=== PATIENT | female | born 1950 | race Caucasian/White ===

== ENCOUNTER 2021-04-11 10:58 | Emergency (ER) | payer MEDICARE, OTHER, SELFPAY ==
[2021-04-11 10:59] VITALS: BP 181/90; PULSE 111; RESP 18; TEMP 36.4; O2SAT 98; BMI 21.4
[2021-04-11 11:05] VITALS: BP 181/90
--- NOTE | 2021-04-11 12:08 | EX.ED.VIS.EY ---
HPI History of Present Illness Chief Complaint: Eye Problem Informant: patient Onset/Context/Timing Location: Left Eye Onset: Days (4) Context: Gradual Onset Timing: Continuous Worsened by: Nothing Relieved by: Nothing Associated Symptoms Associated Symptoms - Eyes: Crusting, Drainage, Eyelid swelling, Matting and Redness; Negative for Burning, Foreign body sensation, Itching, Pain and Photophobia Narrative Narrative: Patient presents with left eye redness and swelling that has been getting worse over the past 4 days. Patient noticed a rash over her left forehead and nose yesterday. Patient states nothing makes it worse and nothing makes it better. Patient admits to some matting and crusting. Patient also admits to some drainage from the left eye. Patient denies any visual changes. Patient denies any trauma or injury. Patient states she does wear a contact lens in her right eye but not in her left. PFSH PFSH no medical history Home Medications valacyclovir 1,000 mg PO Q8H #21 tab 04/11/21 [Rx Last Taken Unknown] Allergy/AdvReac Type Severity Reaction Status Date / Time No Known Allergies Allergy Verified 04/11/21 10:58 Surgical History History of hysterectomy Social History (Updated 04/11/21 @ 12:[address] Richard Ballard, ) Smoking Status: Current every day smoker tobacco type: cigarettes Smoking packs per day: 1 Smoking cigarettes per day: 20.0 ROS ROS ED Constitutional Constitutional ED: Denies chills or fever(s) Eyes Eyes: Denies blurry vision or change in vision ENT ENT ED: Denies rhinorrhea or sore throat Cardiovascular Cardiovascular: Denies chest pain or palpitations Respiratory/Chest Respiratory/Chest: Denies cough or dyspnea Gastrointestinal Gastrointestinal: Denies nausea or vomiting Genitourinary Genitourinary ED: Denies dysuria or hematuria Musculoskeletal Musculoskeletal: Denies back pain or neck pain Integumentary Reports rash; Denies abscess Neurologic Neurologic: Denies headache(s) or weakness Allergic/Immunologic Allergic/Immunologic ED: Denies mouth swelling or urticaria EXAM Physical Exam Const Vital Signs: 04/11/21 10:59 04/11/21 11:05 Temperature 97.5 F L Temperature Source Temporal Pulse Rate 111 H Respiratory Rate 18 Blood Pressure 181/90 H 181/90 H Blood Pressure Mean 120 120 Pulse Ox 98 Oxygen Delivery Method Room Air Positive well nourished and well developed General Appearance ED: well developed Eyes Alignment: alignment normal Eyelid: eyelids abnormal left upper eyelid swelling and left lower eyelid swelling Conjunctiva: conjunctiva abnormal left Details: injection Positive for diffuse Cornea: cornea normal and fluorescein used Pupil: PERRL EOM: Negative for EOM abnormal Slit Lamp: slit lamp exam performed with fluorescein Resp normal respiratory effort and clear to auscultation bilaterally Cardio regular rate and regular rhythm Neuro oriented x3, CN's II-XII intact bilaterally, moves all extremities and no sensory deficits noted Sensorium / Orientation: alert Motor Exam: strength 5/5 throughout Skin Rashes: rashes noted Left forehead and face patch, vesicle and excoriation asymmetrical erythematous dry mild herpes zoster MDM MDM MDM Narrative Medical decision making narrative: Tetracaine and fluorescein dye was applied. I do not see any dendritic lesions or corneal abrasions on the cornea. Case was discussed with Dr. Foreman from ophthalmology. She recommended placing the patient on erythromycin ointment in addition to a prescription for Valtrex. She will follow up with the patient tomorrow. Patient understood and was agreeable with the plan. All questions were answered. Discharge Plan Triage Chief Complaint: Eye Problem ED Provider: Richard Ballard Dx/Rx/DC Orders Clinical Impression: Herpes zoster ophthalmicus of left eye Instructions: ED Shingles (Herpes Zoster) Prescriptions: New valacyclovir 1 gram tablet 1,000 mg PO Q8H Qty: 21 RF: 0 Primary Care Provider: Vera Rivera Referrals: Vera Rivera DO [Primary Care Provider] - Areli Foremna MD [STAFF PHYSICIAN] - 1 Day Disposition Disposition: Home, Self Care
[2021-04-11] MEDS: Tetracaine 0.5% Ophthalmic Bottle 1 DRP OPHTHALMIC (12:33)
[2021-04-11] MEDS: Fluorescein 1 MG STRIP 1 STRIP OPHTHALMIC (12:33)
[2021-04-11] MEDS: Erythromycin Ophthalmic (NSY) 1 GM OPTH.TUBE 1 APPLIC LEFT EYE (14:07)
== END 2021-04-11 14:08 | disposition home or self-care (01) ==
PROVIDERS: Emergency Provider Emergency Medicine; PCP Family Medicine
DX: B02.30 Zoster ocular disease, unspecified (principal); F17.210 Nicotine dependence, cigarettes, uncomplicated
CPT/HCPCS: 99282

== ENCOUNTER 2025-07-14 06:18 | Inpatient (IN) | payer MEDICARE, OTHER, SELFPAY ==
[2025-07-14] VITALS (18 sets, daily range): BP systolic 93–152; BP diastolic 64–96; PULSE 68–137; RESP 14–20; TEMP 36.4–37; O2SAT 87–100; BMI 22.8; BMI 22.4
--- NOTE | 2025-07-14 06:45 | EKG12_ITS ---
Test Reason : P Blood Pressure : */* mmHG Vent. Rate : 135 BPM Atrial Rate : 135 BPM P-R Int : 152 ms QRS Dur : 116 ms QT Int : 270 ms P-R-T Axes : -10 -88 17 degrees QTcB Int : 405 ms Sinus tachycardia Left axis deviation Low voltage QRS Anteroseptal infarct , age undetermined Abnormal ECG Confirmed by Nabil Chaparro ([id number]), scientific editor KINDRA RAMACHANDRAN ([id number]) on 07/15/2025 10:30:37 AM Referred By: Confirmed By: Nabil Chaparro
--- NOTE | 2025-07-14 06:45 | CT_ITS ---
PROCEDURE: BRAIN/HEAD WITHOUT CONTRAST 07/14/2025 REASON FOR EXAM: CONFUSION History of falls. TECHNIQUE: Procedure Code: CTBR Modality: CT Procedure: BRAIN/HEAD WITHOUT CONTRAST Coronal and Sagittal reconstruction series were provided. One or more dose reduction techniques were used (e.g., Automated exposure control, adjustment of the mA and/or kV according to patient size, use of iterative reconstruction technique. RADIATION DOSE SUMMARY: CTDlvol: 44.99 mGy DLP: 779.24 mGycm COMPARISON: None FINDINGS: Brain: Low density in the periventricular white matter suggests mild chronic small vessel ischemic changes. Atherosclerotic calcification of the cavernous portions of the internal carotid arteries bilaterally. CSF Spaces: Moderate generalized cerebral atrophy Sinuses/Mastoids: Clear at visualized levels Bones: Unremarkable CT/Brain/Head without Contrast IMPRESSION: CHRONIC CHANGES. NO ACUTE FINDINGS. Reading Location: [id number]
--- NOTE | 2025-07-14 06:45 | CT_ITS ---
PROCEDURE: ABDOMEN/PELVIS W IV CONT ONLY 07/14/2025 REASON FOR EXAM: ? CIRRHOSIS WITH ASCITES Confusion. TECHNIQUE: Procedure Code: [id number] Modality: CT Procedure: ABDOMEN/PELVIS W IV CONT ONLY Coronal and Sagittal reconstruction series were provided. CONTRAST: Isovue-300 VOLUME: 95 mL One or more dose reduction techniques were used (e.g., Automated exposure control, adjustment of the mA and/or kV according to patient size, use of iterative reconstruction technique. RADIATION DOSE SUMMARY: CTDlvol: 10.5 mGy DLP: 440.85 mGycm COMPARISON: None FINDINGS: Lung bases: Small bilateral pleural effusion with the compressive bibasilar atelectasis. Coronary artery calcification. Diffuse ascites. Liver: Diffuse fatty infiltration. Findings suggestive of cirrhosis of the liver. Gallbladder: Thickening of the gallbladder wall most likely secondary to the presence of ascites. Spleen: Normal size. Pancreas: Diffuse fatty atrophy. Adrenals: Unremarkable Kidneys: Normal renal sizes. No hydronephrosis. Bladder: Unremarkable Bowel: Nonspecific bowel gas pattern. Appendix: The appendix is not identified. There is no inflammatory process identified in the right lower quadrant to suggest appendicitis. Lymph nodes: Unremarkable. Vasculature: Mild diffuse atherosclerotic calcifications are noted. Peritoneum / Retroperitoneum: Ascites. Bones: Degenerative changes of the spine. CT/Abdomen/Pelvis W IV Cont ONLY IMPRESSION: Diffuse ascites. Findings suggestive of cirrhosis of the liver. Reading Location: [id number]
[2025-07-14] MEDS: 0.9% Normal Saline (1000mL) 1,000 ML 999 ML IV (06:59)
--- NOTE | 2025-07-14 07:00 | EX.ED.DYSGE1 ---
HPI History of Present Illness Chief Complaint: Confusion Informant: patient, spouse/S.O. and EMS Narrative Narrative: Patient is a 74-year-old female who states she does not go to a family physician and because of this she does not know if she has any chronic medical conditions. She states that she has smoked for multiple years and was typically a pack-a-day smoker but has decreased as she is aged. She states she does not have supplemental oxygen at home. She states she also would drink 5-6 beers per day and did that for multiple years but as she is age that is also decreased. According to the she sleeps on the couch and he sleeps in the recliner and this is a normal event for them. Reported they both went to bed as they normally would last night and then he awoke around 1 in the morning and found the patient sitting on the floor with her pants off. He states the patient seemed confused during this time and she would not stand up. He states that he tried to help her up and she was a limp noodle. Her symptoms did not seem to be improving and with this she called EMS and she was brought in for evaluation EMS states when they arrived she appeared awake and alert but on their initial vitals her pulse ox was in the mid 80s on room air and therefore she was placed on nasal cannula oxygen PFSH PFS Medical History no medical history no medical history Allergy/AdvReac Type Severity Reaction Status Date / Time No Known Allergies Allergy Verified 07/14/25 06:20 Surgical History History of hysterectomy Social History (Updated 04/11/21 @ 12:[address] Richard Ballard, ) Smoking Status: Current every day smoker tobacco type: cigarettes ROS ROS ED Constitutional Constitutional ED: Denies chills or fever(s) Eyes Eyes: Denies blurry vision or change in vision ENT ENT ED: Denies rhinorrhea or sore throat Cardiovascular Cardiovascular: Reports other Details: Negative syncope ; Denies chest pain, palpitations or racing heartbeat Respiratory/Chest Respiratory/Chest: Denies cough or dyspnea Gastrointestinal Gastrointestinal: Reports other Details: Patient reports abdominal distention ; Denies abdominal pain, diarrhea, nausea or vomiting Genitourinary Genitourinary ED: Denies dysuria Musculoskeletal Musculoskeletal: Denies back pain, myalgias or neck pain Integumentary Denies Abrasions or rash Neurologic Neurologic: Denies headache(s) or weakness Hematologic/Lymphatic Hematologic/Lymphatic: Denies easy bleeding or easy bruising EXAM Physical Exam Const Vital Signs: 07/14/25 06:19 07/14/25 06:21 Temperature 98.0 F Temperature Source Oral Pulse Rate 126 H 137 H Respiratory Rate 16 20 H Blood Pressure 152/79 H Blood Pressure Mean 103 Pulse Ox 96 87 Oxygen Delivery Method Nasal Cannula Room Air Oxygen Flow Rate (L/min) 4 Positive well nourished, well developed and unkempt General Appearance ED: unkempt and well developed; Negative for pallor HEENT Reports dry mucous membranes HEENT Narrative: Normocephalic atraumatic No signs of depressed or basilar skull fracture No tongue or lip swelling no oral lesions no airway edema or compromise No secondary findings in the posterior pharynx to suggest infection No tongue or cheek biting noted to suggest seizure activity Mucous membranes are dry and tacky Mouth ED: Yes dry mucous membranes Mouth: dry mucous membranes Eyes PERRL and EOMs intact bilaterally General Eye ED: Negative for scleral icterus Neck supple and no JVD Neck Narrative: No nuchal rigidity or meningeal signs Chest Wall palpation of chest normal Resp Resp Narrative: Breath sounds are diminished throughout with diffuse expiratory wheeze and faint rhonchi in the bilateral bases Patient has mild tachypnea No nasal flaring retractions or accessory muscle use Cardio regular rhythm Rate: tachycardic and other Other Details: Tachycardic rate with regular rhythm Radial and carotid pulses are equal and symmetric GI non-tender and no masses GI Narrative: There is mild abdominal distention noted without obvious hepatomegaly No pain on palpation No voluntary guarding or rigidity No pulsatile mass No peritoneal signs Scant fluid wave noted Auscultation: normoactive bowel sounds Palpation: soft Extremity Extremity Narrative: Trace to +1 pitting edema to the bilateral lower extremities which is equal and symmetric Negative Homans' sign bilaterally Neuro oriented x3, CN's II-XII intact bilaterally and no sensory deficits noted Neuro Narrative: GCS of 15 Cranial nerves II through XII are grossly intact without focal neurologic deficit NIH stroke scale score 0 Sensorium / Orientation: alert Motor Exam: strength 5/5 throughout Psych mental status grossly normal Appearance: unkempt Skin no rashes or lesions noted and No skin turgor normal Skin Narrative: Skin turgor is increased consistent with dehydration No overlying soft tissue changes to suggest trauma or infection General Skin Exam: Negative for jaundice or pallor MDM MDM MDM Narrative Medical decision making narrative: Patient arrived to the ER slightly hyper tensive and tachycardic. She was also mildly hypoxic on room air but does have a history of smoking. She has not seen a doctor for multiple years. With 's report of weakness and confusion as well as the fact that she has a history of alcohol use and now her abdomen is distended there is concern she has developed cirrhosis with ascites and could have had hepatic encephalopathy or with the fall and developed a subarachnoid subdural hemorrhage or even a potential brain mass or may have alcoholic dementia. With the hypoxia she could have pneumonia or pneumothorax and with the tachycardia this could be due to a pulmonary embolus and therefore D-dimer was obtained. Head CT revealed no mass or bleed. Chest x-ray revealed potential pneumonitis without pneumothorax or pleural effusion or infiltrate. CT abdomen and pelvis with IV contrast confirmed cirrhosis with large volume ascites which correlates with her physical exam. Her ammonia level is normal however and she is awake alert and oriented person place and time upon my evaluation going against hepatic encephalopathy. Her D-dimer however is elevated and as she was tachycardic upon arrival with hypoxia there is concern for a PE so she will be sent back for CT of the chest to rule this out. She did not have acute kidney injury but her potassium is low at 2.2 which could also correlate with her generalized weakness. She is not having a cardiac dysrhythmia from it and with IV hydration her heart rate has reduced to 90. However because of the significantly low potassium the fact that she has cirrhosis and ascites and has not seen a doctor for multiple years I do feel she would benefit from continued IV fluid as well as potassium supplementation and consultation with GI to discuss treatment options for her cirrhosis. Secondary to this the case was discussed with the hospitalist who agrees to accept the patient to his service for continued care. History & Record Review Discussion w/independent historian: EMS personnel, Patient and Significant other Lab Data Attestation: I reviewed the patient's lab results. Labs: Laboratory Results - last 24 hr 07/14/25 06:55 WBC 9.9 RBC 4.36 Hgb 14.8 Hct 41.4 MCV 95.0 MCH 33.9 H MCHC 35.7 RDW Std Deviation 43.9 RDW Coeff of Huyen 12.7 Plt Count 280 MPV 10.1 Immature Gran % (Auto) 0.400 Neut % (Auto) 66.4 Lymph % (Auto) 23.0 Griggs % (Auto) 9.6 Eos % (Auto) 0.2 Baso % (Auto) 0.4 Absolute Neuts (auto) 6.5 Absolute Lymphs (auto) 2.27 Nucleated RBC % 0 D-Dimer Quant (PE/DVT) 2.63 H* Sodium 139 Potassium 2.2 L* Chloride 92 L Carbon Dioxide 32.0 Anion Gap 15 BUN 10 Creatinine 0.53 L Estim Creat Clear Calc 45.85 L Est GFR (MDRD) Non-Af 97 BUN/Creatinine Ratio 19.4 Glucose 108 H Calcium 8.1 Magnesium 1.9 Total Bilirubin 0.78 Direct Bilirubin 0.45 H AST 37 H ALT 20 Alkaline Phosphatase 105 H Ammonia 21.6 NT pro BNP II 1105 Total Protein 5.2 L Albumin 2.7 L Globulin 2.5 Procalcitonin 0.12 H TSH 5.210 H Salicylates < 0.5 L Acetaminophen < 5.0 L Ethyl Alcohol < 10.1 Radiography Diagnostic Testing: Clinical Impression(s) from Imaging Studies Abdomen/Pelvis CT 07/14/25 06:45 IMPRESSION: Diffuse ascites. Findings suggestive of cirrhosis of the liver. Reading Location: [facility] Brain CT 07/14/25 06:45 IMPRESSION: CHRONIC CHANGES. NO ACUTE FINDINGS. Reading Location: [facility] Chest X-Ray 07/14/25 07:25 IMPRESSION: Lungs are hypoinflated, but marked asymmetric left lower lobe airspace disease is seen, most prominent in the retro cardiac location, concerning for possible Pneumonitis (less likely atelectasis). No evidence of pulmonary edema. No pleural effusion is identified. No pneumothorax is seen. The cardiomediastinal silhouette is remarkable for a calcified aorta; no evidence of cardiomegaly. Generalized osteopenia is seen. Bilateral acromioclavicular joint degenerative changes are noted. Mild thoracic spine degenerative changes along with mild dextroscoliosis also seen. No acute osseous change is evident. Reading Location: [place] [address] Chest x-ray as interpreted by the emergency medicine physician reveals hypoinflated lungs without obvious infiltrate pneumothorax or pleural effusion Management Discussion w/another healthcare provider: Hospitalist Discharge Plan Dx/Rx/DC Orders Clinical Impression: Cirrhosis of liver with ascites, Acute hypokalemia, Dehydration, Mental status change resolved Disposition Disposition: Acute Care Hospital [facility]
--- OUTSIDE RECORDS SUMMARY | 2025-07-14 07:00 | XMS RPT_ITS | CCD ---
Author Organization [employer] [facility] Results Test Name Value Interpretation Reference Range Facil ity Emergency Department Summary on 04-11-2021 Emergency Department Summary [facility] Medical Records Department [address] [address] Emergency Department Summary 04/11/21 MR#: [id number] Acct: [id number] Name: KARLENE WINCHESTER Rep #: [id number] : [id number] 70 From: Richard Ballard DO PCP: Dr. Vera Rivera DO Status:DEP ER Location: ED HPI History of Present Illness Chief Complaint: Eye Problem Informant: patient Onset/Context/Timing Location: Left Eye Onset: Days (4) Context: Gradual Onset Timing: Continuous Worsened by: Nothing Relieved by: Nothing Associated Symptoms Associated Symptoms - Eyes: Crusting, Drainage, Eyelid swelling, Matting and Redness; Negative for Burning, Foreign body sensation, Itching, Pain and Photophobia Narrative Narrative: Patient presents with left eye redness and swelling that has been getting worse over the past 4 days. Patient noticed a rash over her left forehead and nose yesterday. Patient states nothing makes it worse and nothing makes it better. Patient admits to some matting and crusting. Patient also admits to some drainage from the left eye. Patient denies any visual changes. Patient denies any trauma or injury. Patient states she does wear a contact lens in her right eye but not in her left. PFSH PFSH no medical history Home Medications valacyclovir 1,000 mg PO Q8H #21 tab 04/11/21 [Rx Last Taken Unknown] Allergy/AdvReac Type Severity Reaction Status Date / Time No Known Allergies Allergy Verified 04/11/21 10:58 Surgical History History of hysterectomy Social History (Updated 04/11/21 @ 12:[address] Richard Schwiger, DO) Smoking Status: Current every day smoker tobacco type: cigarettes Smoking packs per day: 1 Smoking cigarettes per day: 20.0 ROS ROS ED Constitutional Constitutional ED: Denies chills or fever(s) Eyes Eyes: Denies blurry vision or change in vision ENT ENT ED: Denies rhinorrhea or sore throat Cardiovascular Cardiovascular: Denies chest pain or palpitations Respiratory/Chest Respiratory/Chest: Denies cough or dyspnea Gastrointestinal Gastrointestinal: Denies nausea or vomiting Genitourinary Genitourinary ED: Denies dysuria or hematuria Musculoskeletal Musculoskeletal: Denies back pain or neck pain Integumentary Reports rash; Denies abscess Neurologic Neurologic: Denies headache(s) or weakness Allergic/Immunologic Allergic/Immunologic ED: Denies mouth swelling or urticaria EXAM Physical Exam Const Vital Signs: 04/11/21 10:59 04/11/21 11:05 Temperature 97.5 F L Temperature Source Temporal Pulse Rate 111 H Respiratory Rate 18 Blood Pressure 181/90 H 181/90 H Blood Pressure Mean 120 120 Pulse Ox 98 Oxygen Delivery Method Room Air Positive well nourished and well developed General Appearance ED: well developed Eyes Alignment: alignment normal Eyelid: eyelids abnormal left upper eyelid swelling and left lower eyelid swelling Conjunctiva: conjunctiva abnormal left Details: injection Positive for diffuse Cornea: cornea normal and fluorescein used Pupil: PERRL EOM: Negative for EOM abnormal Slit Lamp: slit lamp exam performed with fluorescein Resp normal respiratory effort and clear to auscultation bilaterally Cardio regular rate and regular rhythm Neuro oriented x3, CN's II-XII intact bilaterally, moves all extremities and no sensory deficits noted Sensorium / Orientation: alert Motor Exam: strength 5/5 throughout Skin Rashes: rashes noted Left forehead and face patch, vesicle and excoriation asymmetrical erythematous dry mild herpes zoster MDM MDM MDM Narrative Medical decision making narrative: Tetracaine and fluorescein dye was applied. I do not see any dendritic lesions or corneal abrasions on the cornea. Case was discussed with Dr. Foreman from ophthalmology. She recommended placing the patient on erythromycin ointment in addition to a prescription for Valtrex. She will follow up with the patient tomorrow. Patient understood and was agreeable with the plan. All questions were answered. Discharge Plan Triage Chief Complaint: Eye Problem ED Provider: Richard Ballard Dx/Rx/DC Orders Clinical Impression: Herpes zoster ophthalmicus of left eye Instructions: ED Shingles (Herpes Zoster) Prescriptions: New valacyclovir 1 gram tablet 1,000 mg PO Q8H Qty: 21 RF: 0 Primary Care Provider: Vera Rivera Referrals: Vera Rivera DO [Primary Care Provider] - Areli Foreman MD [STAFF PHYSICIAN] - 1 Day Disposition Disposition: Home, Self Care What to do if you have Problems For any increased pain, shortness of breath, bleeding, nausea or vomiting, chest pain, or any unexpected problems, contact your Primary Care Provider. Call [facility] ([phone]) or report to the (more content not included)... Normal [facility] Summary Purpose Family History No Family History Records Found Advance Directives No Advanced Directives Records Found Additional Source Comments INFORMATION SOURCE (unrecogn ized section and content) DATE CREATED AUTHOR 09/13/2021 [facility] FOR RECORDS PERTAINING TO PATIENTS WHO ARE OR HAVE BEEN ENROLLED IN A CHEMICAL DEPENDENCY/SUBSTANCEABUSE PROGRAM, SOME INFORMATION MAY BE OMITTED. This clinical summary was aggregated from multiple sources. Caution should be exercised in using it in the provision of clinical care. This summary normalizes information from multiple sources, and as a consequence, information in this document may materially change the coding, format and clinical context of patient data. In addition, data may be omitted in some cases. CLINICAL DECISIONS SHOULD BE BASED ON THE PRIMARY CLINICAL RECORDS. [employer] provides no warranty or guarantee of the accuracy or completeness of information in this document.
[2025-07-14 07:21] LABS: Hematocrit 41.4 % (37-47); Hemoglobin 14.8 g/dL (12.0-15.0); Immature Granulocytes Count 0.040 X10^3/uL (0.0-0.0); Mean Corp Hgb Conc 35.7 g/dL (32-36); Mean Corpuscular Volume 95.0 fL (81-99); Mean Platelet Vol. 10.1 fl (6.2-12.0); NRBC Flagged by Analyzer 0 % (0-5); Platelet Count 280 K/mm3 (150-450); RBC Distribution Width CV 12.7 % (11.6-14.6); RBC Distribution Width SD 43.9 fl (35.1-43.9); Red Blood Count 4.36 M/mm3 (4.2-5.4); White Blood Count 9.9 K/mm3 (4.4-11.0)
--- NOTE | 2025-07-14 07:25 | RAD_ITS ---
PROCEDURE: CHEST 1 VIEW (PORTABLE) 07/14/2025 REASON FOR EXAM: DYSPNEA TECHNIQUE: Frontal view of the chest. COMPARISON: None. RAD/Chest 1 View (Portable) IMPRESSION: Lungs are hypoinflated, but marked asymmetric left lower lobe airspace disease is seen, most prominent in the retro cardiac location, concerning for possible Pneumonitis (less likely atelectasis). No evidence of pulmonary edema. No pleural effusion is identified. No pneumothorax is seen. The cardiomediastinal silhouette is remarkable for a calcified aorta; no eviden ce of cardiomegaly. Generalized osteopenia is seen. Bilateral acromioclavicular joint degenerative changes are noted. Mild thoraci c spine degenerative changes along with mild dextroscoliosis also seen. No acute osseous change is evident. Reading Location: [place] [address]
[2025-07-14 07:39] LABS: Pro- Brain NATRIURETIC PEPTIDE 1105 pg/mL (<=1800)
[2025-07-14 07:40] LABS: Ammonia 21.6 umol/L (11-51)
[2025-07-14 07:41] LABS: Acetaminophen (Tylenol) Level < 5.0 ug/mL (8.0-19.0); Alcohol, Blood (Medical)-Serum < 10.1 mg/dL (<=10.0); Salicylate < 0.5 mg/dL (2.8-20.0)
[2025-07-14 07:47] LABS: Magnesium 1.9 mg/dL (1.5-2.2); Procalcitonin 0.12 ng/mL (<=0.10)
[2025-07-14 07:53] LABS: D-Dimer Quantitative (DVT/PE) 2.63 FEU/ug/m (0.27-0.49)
[2025-07-14 07:54] LABS: AST(SGOT) 37 U/L (<=31); Alanine Aminotransfer ALT/SGPT 20 U/L (<=34); Albumin, Serum 2.7 g/dL (3.4-4.8); Alkaline Phosphatase 105 U/L (35-104); Anion Gap 15 (5-15); BUN 10 mg/dL (4-19); BUN/Creat Ratio 19.4 RATIO (10-20); Bilirubin, Direct 0.45 mg/dL (0.00-0.30); Calcium,Total 8.1 mg/dL (7.6-11.0); Carbon Dioxide 32.0 mmol/L (21.0-32.0); Chloride 92 mmol/L (98-108); Estimated Creatinine Clearance 45.85 ml/min (50-250); Globulin 2.5 g/dL (2.2-4.2); Glucose 108 mg/dL (70-99); Potassium 2.2 mmol/L (3.3-5.1)
--- NOTE | 2025-07-14 08:29 | HP.PCM.HOS_ITS ---
HPI - General General Date of Admission: 07/14/25 Date of Service: 07/14/25 Chief Complaint: Generalized weakness HPI Narrative KARLENE WINCHESTER, is a 74 F who presented to the emergency department with generalized weakness. Per patient symptoms have been ongoing for the past couple of days. Patient reports multiple falls. She also did admit to intermittent episodes of confusion. On the morning of her presentation patient could hardly ambulate. She was therefore brought to the emergency department as a result. Workup did reveal presence of acute cystitis as well as severe hypokalemia. Patient also did admit to chronic use of alcohol and CT of the abdomen and pelvis demonstrated cirrhosis of the liver with ascites. Patient was admitted to a monitored bed for subsequent management [facility] Medical History no medical history Home Medications ?Medication ?Instructions ?Recorded ?Last Taken ?Type NK 07/14/25 Unknown History Allergy/AdvReac Type Severity Reaction Status Date / Time No Known Allergies Allergy Verified 07/14/25 06:20 Surgical History (Updated 07/14/25 @ 12:59 by Ana Luisa Vázquez) History of hysterectomy Social History (Updated 04/11/21 @ 12:[address] Richard Ballard, ) Smoking Status: Current every day smoker tobacco type: cigarettes ROS ROS Narrative GENERAL: Generalized weakness HEENT: denies headache, sinus congestion, RESPIRATORY: denies cough, sputum production, CARDIAC: denies chest pain, palpitations, orthopnea, PND GASTROINTESTINAL: denies abdominal pain, nausea, vomiting, melena, GENITOURINARY: denies dysuria, urgency, frequency, heamaturia EXTREMITY: denies swelling MUSCULOSKELETAL: Falls NEUROLOGIC: denies focal numbness, weakness, tingling HEMATOLOGIC: denies easy bruising and/or hemorrhage INTEGUMENT: denies rashes PSYCHIATRIC: denies suicidal or homicidal ideation Patient's Goals Of Care . What would you like to achieve or improve as a result of your hospital stay?: To get better Vital Signs Vital Signs Vital Signs: 07/14/25 06:19 07/14/25 06:21 Temperature 98.0 F Temperature Source Oral Pulse Rate 126 H 137 H Respiratory Rate 16 20 H Blood Pressure 152/79 H Blood Pressure Mean 103 Pulse Ox 96 87 Oxygen Delivery Method Nasal Cannula Room Air Oxygen Flow Rate (L/min) 4 Weight Weight: 54.9 kg Body Mass Index (BMI) 22.8 Physical Exam Narrative GENERAL: Frail looking HEENT: Atraumatic; normocephalic EYES; Anicteric, Normal Conjunctiva NECK; supple, normal thyroid, RESPIRATORY: Diminished to auscultation CARDIOVASCULAR: Regular S1 S2, GI: soft, normoactive bowel sounds, : No Renal angle tenderness; EXTREMITIES: No edema, no clubbing, MUSCULOSKELETAL: muscle wasting NEURO: Awake; no lateralizing signs. SKIN: No Rash PSYCH; Flat affect Results Lab / Micro Data 07/14/25 06:55 07/14/25 12:45 Labs: Laboratory Results - last 24 hr 07/14/25 06:55: WBC 9.9, RBC 4.36, Hgb 14.8, Hct 41.4, MCV 95.0, MCH 33.9 H, MCHC 35.7, RDW Std Deviation 43.9, RDW Coeff of Huyen 12.7, Plt Count 280, MPV 10.1, Immature Gran % (Auto) 0.400, Neut % (Auto) 66.4, Lymph % (Auto) 23.0, [place] % (Auto) 9.6, Eos % (Auto) 0.2, Baso % (Auto) 0.4, Absolute Neuts (auto) 6.5, Absolute Lymphs (auto) 2.27, Nucleated RBC % 0, D-Dimer Quant (PE/DVT) 2.63 H*, Sodium 139, Potassium 2.2 L*, Chloride 92 L, Carbon Dioxide 32.0, Anion Gap 15, BUN 10, Creatinine 0.53 L, Estim Creat Clear Calc 45.85 L, Est GFR (MDRD) Non-Af 97, BUN/Creatinine Ratio 19.4, Glucose 108 H, Calcium 8.1, Magnesium 1.9, Total Bilirubin 0.78, Direct Bilirubin 0.45 H, AST 37 H, ALT 20, Alkaline Phosphatase 105 H, Ammonia 21.6, NT pro BNP II 1105, Total Protein 5.2 L, A lbumin 2.7 L, Globulin 2.5, Procalcitonin 0.12 H, TSH 5.210 H, Salicylates < 0.5 L, Acetaminophen < 5.0 L, Ethyl Alcohol < 10.1 Imaging Radiology Impression Abdomen/Pelvis CT 07/14/25 06:45 IMPRESSION: Diffuse ascites. Findings suggestive of cirrhosis of the liver. Reading Location: [id number] Brain CT 07/14/25 06:45 IMPRESSION: CHRONIC CHANGES. NO ACUTE FINDINGS. Reading Location: [id number] Chest X-Ray 07/14/25 07:25 IMPRESSION: Lungs are hypoinflated, but marked asymmetric left lower lobe airspace disease is seen, most prominent in the retro cardiac location, concerning for possible Pneumonitis (less likely atelectasis). No evidence of pulmonary edema. No pleural effusion is identified. No pneumothorax is seen. The cardiomediastinal silhouette is remarkable for a calcified aorta; no evidence of cardiomegaly. Generalized osteopenia is seen. Bilateral acromioclavicular joint degenerative changes are noted. Mild thoracic spine degenerative changes along with mild dextroscoliosis also seen. No acute osseous change is evident. Reading Location: [facility] Assessment & Plan Assessment/Plan (1) Dehydration: (2) Cirrhosis of liver with ascites: (3) Metabolic encephalopathy: PLAN: Plan Patient is a 74-year-old lady who was brought to the emergency department with altered mental status 1. Acute metabolic encephalopathy ? Secondary to acute cystitis and chronic use of alcohol admitted to a monitored bed for subsequent care 2. Acute cystitis ? Patient was started on ceftriaxone urine culture sent 3. Severe hypokalemia ? Secondary to decreased oral intake. Corrected per protocol also did check for phosphorus and magnesium level with plans to correct any further electrolyte abnormalities 4. Elevated TSH ? May be secondary to euthyroid sick syndrome plan is to repeat TSH when patient is medically stable 5. Cirrhosis of the liver with diffuse ascites ? Secondary to alcohol use ordered ultrasound-guided paracentesis with diagnostic workup sent 7. Tobacco dependence ? Counseled on cessation, offered nicotine patch for tobacco cravings 8. Chronic alcohol dependence ? Counseled on cessation. Patient was. Start CIWA protocol she reduce her risk of withdrawal 9. Suspected severe protein calorie malnutrition ? As evidenced by muscle wasting and decreased energy level and decreased oral intake consult placed to dietitian 10 .DVT prophylaxis ? Placed on Lovenox 11. Hypophosphatemia ? Corrected per protocol repeat phosphate levels ordered for a.m. Charges/Coding Visit Charges Inpatient E&M: 00958 Init Hosp L3
[2025-07-14] MEDS: Potassium Chloride Oral Tablet 20 MEQ 40 MEQ PO ×2 (08:47→13:33)
[2025-07-14] MEDS: Potassium Chloride 10mEq/100mL 10 MEQ/100 ML IV.SOLN. 100 MEQ IV BOLUS ×3 (08:47→11:47)
[2025-07-14 09:16] LABS: Mucous, Urine 0 SEEN /hpf (<or=2+); Red Blood Cells-Urine 0 SEEN /hpf (0-5)
--- NOTE | 2025-07-14 09:20 | CT_ITS ---
PROCEDURE: CTA CHEST W/WO CONTRAST 07/14/2025 REASON FOR EXAM: ELEVATED D-DIMER WITH HYPOXIA TECHNIQUE: Procedure Code: [id number] Modality: CT Procedure: CTA CHEST W/WO CONTRAST Multiplanar Sagittal and Coronal images were obtained. CONTRAST: Isovue 370 VOLUME: 70 mL One or more dose reduction techniques were used (e.g., Automated exposure control, adjustment of the mA and/or kV according to patient size, use of iterative reconstruction technique). RADIATION DOSE SUMMARY: CTDlvol: 10.5 mGy DLP: 116.6 mGycm COMPARISON: None FINDINGS: Exam is degraded by motion artifact. Thoracic Aorta: Aortic root measures up to 3.0 cm in diameter. Aortic arch is within normal limits. No evidence of aortic dissection. Heart: Not enlarged. Pulmonary Vessels: No evidence of acute pulmonary embolus. Lymph nodes: No enlarged lymph nodes in the thorax. Diffuse emphysema. Bilateral pleural effusions and associated compressive atelectasis. Upper Abdomen: Partially visualized ascites. Bones: Mild sclerotic lesion in the T4 vertebral body sagittal image 151. Degenerative changes throughout the thoracic spine. Apparent step-off in the sternum sagittal image 152, motion artifact related. CT/CTA Chest W/WO Contrast IMPRESSION: 1. No evidence of acute pulmonary embolus. 2. Bilateral pleural effusions and associated atelectasis. 3. Partially visualized large amount ascites in the upper abdomen. Reading Location: [id number]
[2025-07-14 09:21] LABS: Color, Urine Yellow (Yellow); Glucose, Dipstick Normal (Normal); Ketone-Dipstick 5 mg/dl (Negative); Leukocyte Esterase-Dipstick 500 /ul (Negative); Nitrite-Dipstick Negative (Negative); Occult Blood-Urine 25 /ul (Negative); Protein-Dipstick 30 mg/dl (Negative); Specific Gravity, Urine 1.015 (1.002-1.030)
[2025-07-14 09:22] LABS: Urine Bilirubin Dipstick 1 mg/dL (Negative)
[2025-07-14 09:42] LABS: Squamous Epithelial Cells - UA 0-5 SEEN /hpf (5-10); Transitional Epithelial - Ur 0-5 SEEN /hpf (0-5)
--- OUTSIDE RECORDS SUMMARY | 2025-07-14 09:51 | XMS RPT_ITS | CCD ---
Author Organization [employer] PATIENT CASE COORDINATOR [facility] Results Test Name Value Interpretation Reference Range Facil ity Emergency Department Summary on 04-11-2021 Emergency Department Summary [facility] Medical Records Department [address] [address] Emergency Department Summary 04/11/21 MR#: [id number] Acct: [id number] Name: KARLENE WINCHESTER Rep #: [id number] : 1950 70 From: Ricahrd Ballard DO PCP: Dr. Vera Rivera DO [...] 0 Primary Care Provider: Vera Rivera Referrals: Vrea Rivera DO [Primary Care Provider] - Areli Foreman MD [STAFF PHYSICIAN] - 1 Day Disposition Disposition: Home, Self Care What to do if you have Problems For any increased pain, shortness of breath, bleeding, nausea or vomiting, chest pain, or any unexpected problems, contact your Primary Care Provider. Call [facility] ([phone]) or report to the (more content not included)... Normal [facility] Summary Purpose Family History No Family History Records Found Advance Directives No Advanced Directives Records Found Additional Source Comments INFORMATION SOURCE (unrecogn ized section and content) DATE CREATED AUTHOR 09/13/2021 [facility] FOR RECORDS PERTAINING TO PATIENTS WHO ARE [...] BE BASED ON THE PRIMARY CLINICAL RECORDS. [employer] provides no warranty or guarantee of the accuracy or completeness of information in this document.
[2025-07-14 10:04] LABS: Barbiturate Urine NEGATIVE (< 200 ng/mL); Benzodiazepine Urine NEGATIVE (< 200 ng/mL); PCP Urine NEGATIVE (< 25 ng/mL); THC Urine NEGATIVE (< 50 ng/mL)
[2025-07-14] MEDS: 0.9% Normal Saline (1000mL) 1,000 ML 150 ML IV (11:48)
[2025-07-14] MEDS: Nicotine (PBKC) 14 MG Patch TD (13:43)
[2025-07-14 13:46] LABS: Magnesium 2.2 mg/dL (1.5-2.2)
[2025-07-14 13:50] LABS: Potassium 2.9 mmol/L (3.3-5.1)
[2025-07-14] MEDS: Na Biphos/Potassium Phosphate PACKET 1 PACKET PO ×2 (15:06→21:09)
[2025-07-14] MEDS: Potassium Chloride Oral Tablet 20 MEQ PO (16:49)
[2025-07-15] VITALS (12 sets, daily range): BP systolic 86–109; BP diastolic 59–76; PULSE 121–135; RESP 15–18; TEMP 36–36.9; O2SAT 92–99; BMI 22.1
[2025-07-15 05:07] LABS: Hematocrit 41.8 % (37-47); Hemoglobin 14.2 g/dL (12.0-15.0); Immature Granulocytes Count 0.040 X10^3/uL (0.0-0.0); Mean Corp Hgb Conc 34.0 g/dL (32-36); Mean Corpuscular Volume 98.6 fL (81-99); Mean Platelet Vol. 10.3 fl (6.2-12.0); NRBC Flagged by Analyzer 0 % (0-5); Platelet Count 274 K/mm3 (150-450); RBC Distribution Width CV 13.2 % (11.6-14.6); RBC Distribution Width SD 47.0 fl (35.1-43.9); Red Blood Count 4.24 M/mm3 (4.2-5.4); White Blood Count 8.0 K/mm3 (4.4-11.0)
[2025-07-15 05:27] LABS: AST(SGOT) 37 U/L (<=31); Alanine Aminotransfer ALT/SGPT 20 U/L (<=34); Albumin, Serum 2.6 g/dL (3.4-4.8); Alkaline Phosphatase 85 U/L (35-104); Anion Gap 9 (5-15); BUN 8 mg/dL (4-19); BUN/Creat Ratio 17.7 RATIO (10-20); Bilirubin, Direct 0.35 mg/dL (0.00-0.30); Calcium,Total 7.8 mg/dL (7.6-11.0); Carbon Dioxide 31.1 mmol/L (21.0-32.0); Chloride 99 mmol/L (98-108); Estimated Creatinine Clearance 45.85 ml/min (50-250); Globulin 2.6 g/dL (2.2-4.2); Glucose 90 mg/dL (70-99); Magnesium 2.0 mg/dL (1.5-2.2); Potassium 3.3 mmol/L (3.3-5.1)
--- NOTE | 2025-07-15 07:35 | PN.HOSP_ITS ---
Reason for Visit Chief Complaint: Generalized weakness Subjective Subjective Patient seen remains significantly lethargic this a.m. This is attributed to patient being started on phenobarb. Per nursing staff patient still continues to experience intermittent episodes of confusion Objective Data Objective Data Vital Signs: Vital Signs Temp Pulse Resp BP Pulse Ox O2 Del Method O2 Flow Rate 97.6 F L 68 14 97/64 94 Nasal Cannula 2 07/14/25 23:59 07/14/25 23:59 07/14/25 23:59 07/14/25 23:59 07/14/25 23:59 07/15/25 04:00 07/15/25 04:00 Oxygen Flow Rate (L/min) 2 Oxygen Delivery Method Nasal Cannula Weight: 53 kg Body Mass Index (BMI) 22.1 Intake & Output: Intake and Output for Last 24 Hours 07/13/25 07/14/25 07/15/25 23:59 23:59 23:59 Intake Total 2500 / 2500 500 / 500 Output Total 100 / 100 200 / 200 Balance 2400 / 2400 300 / 300 Lab / Micro Data 07/15/25 04:40 07/15/25 04:40 Labs: Laboratory Results - last 24 hr 07/14/25 06:55: D-Dimer Quant (PE/DVT) 2.63 H*, Sodium 139, Potassium 2.2 L*, C hloride 92 L, Carbon Dioxide 32.0, Anion Gap 15, BUN 10, Creatinine 0.53 L, E stim Creat Clear Calc 45.85 L, Est GFR (MDRD) Non-Af 97, BUN/Creatinine Ratio 19.4, Glucose 108 H, Calcium 8.1, Magnesium 1.9, Total Bilirubin 0.78, Direct Bilirubin 0.45 H, AST 37 H, ALT 20, Alkaline Phosphatase 105 H, Ammonia 21.6, NT pro BNP II 1105, Total Protein 5.2 L, Albumin 2.7 L, Globulin 2.5, Procalcitonin 0.12 H, TSH 5.210 H, Salicylates < 0.5 L, Acetaminophen < 5.0 L, Ethyl Alcohol < 10.1 07/14/25 09:10: Urine Color Yellow, Urine Clarity Cloudy, Urine pH 6.0, Ur Specific Sherwood 1.015, Urine Protein 30 H, Urine Glucose (UA) Normal, Urine Ketones 5 H, Urine Occult Blood 25 H, Urine Nitrite Negative, Urine Bilirubin 1 H, Urine Urobilinogen 1 H, Ur Leukocyte Esterase 500 H, Urine RBC 0 SEEN, Urine WBC 25-50 SEEN, Ur Squamous Epith Cells 0-5 SEEN, Ur Transition Epith Cell 0-5 SEEN, Urine Bacteria 4+, Urine Mucus 0 SEEN, Urine Opiates Screen NEGATIVE, U Buprenorphine Qual NEGATIVE, Ur Oxycodone Screen NEGATIVE, Urine Methadone Screen NEGATIVE, Urine Fentanyl Screen NEGATIVE, Ur Barbiturates Screen NEGATIVE, Ur Phencyclidine Scrn NEGATIVE, Ur Amphetamines Screen NEGATIVE, U Benzodiazepines Scrn NEGATIVE, Urine Cocaine Screen NEGATIVE, U Cannabinoids Screen NEGATIVE 07/14/25 12:45: Potassium 2.9 L, Phosphorus 2.1 L, Magnesium 2.2 07/15/25 04:40: WBC 8.0, RBC 4.24, Hgb 14.2, Hct 41.8, MCV 98.6, MCH 33.5 H, MCHC 34.0, RDW Std Deviation 47.0 H, RDW Coeff of Huyen 13.2, Plt Count 274, MPV 10.3, Immature Gran % (Auto) 0.500, Neut % (Auto) 55.8, Lymph % (Auto) 33.3, [place] % (Auto) 8.6, Eos % (Auto) 0.9, Baso % (Auto) 0.9, Absolute Neuts (auto) 4.4, Absolute Lymphs (auto) 2.65, Nucleated RBC % 0, Sodium 139, Potassium 3.3, Chloride 99, Carbon Dioxide 31.1, Anion Gap 9, BUN 8, Creatinine 0.44 L, Estim Creat Clear Calc 45.85 L, Est GFR (MDRD) Non-Af 101, BUN/Creatinine Ratio 17.7, Glucose 90, Calcium 7.8, Phosphorus 2.6 L, Magnesium 2.0, Total Bilirubin 0.55, Direct Bilirubin 0.35 H, AST 37 H, ALT 20, Alkaline Phosphatase 85, Total Protein 5.3 L, Albumin 2.6 L, Globulin 2.6 Micro: Microbiology 07/14/25 09:10 Mucosa - Nose SARS-CoV-2, Influenza & RSV (PCR) - Final Radiography Diagnostic Testing: Radiology Impression Abdomen/Pelvis CT 07/14/25 06:45 IMPRESSION: Diffuse ascites. Findings suggestive of cirrhosis of the liver. Reading Location: [id number] Brain CT 07/14/25 06:45 IMPRESSION: CHRONIC CHANGES. NO ACUTE FINDINGS. Reading Location: [id number] Chest X-Ray 07/14/25 07:25 IMPRESSION: Lungs are hypoinflated, but marked asymmetric left lower lobe airspace disease is seen, most prominent in the retro cardiac location, concerning for possible Pneumonitis (less likely atelectasis). No evidence of pulmonary edema. No pleural effusion is identified. No pneumothorax is seen. The cardiomediastinal silhouette is remarkable for a calcified aorta; no evidence of cardiomegaly. Generalized osteopenia is seen. Bilateral acromioclavicular joint degenerative changes are noted. Mild thoracic spine degenerative changes along with mild dextroscoliosis also seen. No acute osseous change is evident. Reading Location: [facility] Chest CTA 07/14/25 09:20 IMPRESSION: 1. No evidence of acute pulmonary embolus. 2. Bilateral pleural effusions and associated atelectasis. 3. Partially visualized large amount ascites in the upper abdomen. Reading Location: [facility] Physical Exam Narrative GENERAL: Lethargic but arousable HEENT: Atraumatic; normocephalic EYES; Anicteric, Normal Conjunctiva NECK; supple, normal thyroid, RESPIRATORY: Diminished to auscultation CARDIOVASCULAR: Regular S1 S2, GI: soft, normoactive bowel sounds, : No Renal angle tenderness; EXTREMITIES: No edema, no clubbing, MUSCULOSKELETAL: muscle wasting NEURO: Awake; no lateralizing signs. SKIN: No Rash PSYCH; Flat affect Assessment & Plan Assessment/Plan (1) Dehydration: (2) Cirrhosis of liver with ascites: (3) Metabolic encephalopathy: PLAN: Plan Patient is a 74-year-old lady who was brought to the emergency department with altered mental status 1. Acute metabolic encephalopathy ? Secondary to acute cystitis and chronic use of alcohol admitted to a monitored bed for subsequent care ? 07/15/2025; patient encephalopathy worsened by initiation of phenobarb initiated for her alcohol withdrawal did discuss with pharmacy to adjust doses 2. Acute cystitis ? Patient was started on ceftriaxone urine culture sent slime ?07/15/2025; remains on ceftriaxone urine cultures pending 3. Severe hypokalemia ? Secondary to decreased oral intake. Corrected per protocol also did check for phosphorus and magnesium level with plans to correct any further electrolyte abnormalities ? 07/15/2025; potassium up to 3.3 4. Elevated TSH ? May be secondary to euthyroid sick syndrome plan is to repeat TSH when patient is medically stable 5. Cirrhosis of the liver with diffuse ascites ? Secondary to alcohol use ordered ultrasound-guided paracentesis with diagnostic workup sent 7. Tobacco dependence ? Counseled on cessation, offered nicotine patch for tobacco cravings 8. Chronic alcohol dependence ? Counseled on cessation. Patient was. Start CIWA protocol she reduce her risk of withdrawal ? 07/15/2025; patient was started on phenobarb taper for possible alcohol withdrawal 9. Suspected severe protein calorie malnutrition ? As evidenced by muscle wasting and decreased energy level and decreased oral intake consult placed to dietitian 10 .DVT prophylaxis ? Placed on Lovenox 11. Hypophosphatemia ? Corrected per protocol repeat phosphate levels ordered for a.m. ? 07/15/2025; patient phosphate levels remain low we will continue to monitor Charges/Coding Visit Charges Inpatient E&M: 06098 Disch Hosp >30min
--- NOTE | 2025-07-15 08:00 | US_ITS ---
PROCEDURE: PARACENTESIS WITH US 07/15/2025 REASON FOR EXAM: ASCITES TECHNIQUE: PARACENTESIS WITH US, diagnostic and therapeutic COMPARISON: Chest CT angiogram 07/14/2025. FINDINGS: Following informed consent, an using standard sterile technique, an ultrasound- guided right paracentesis was performed. 2% lidocaine local anesthesia was followed by placement of a 10 cm 5 German Yueh catheter into the right abdominal fluid collection. A proximally 2170 mL of clear yellow fluid was successfully removed, a portion sent to the laboratory for evaluation. No complication was encountered, in the patient left the department in good condition without significant complaint. US/Paracentesis with US IMPRESSION: Successful therapeutic and diagnostic right abdominal paracentesis. Laboratory results pending. Reading Location: [place] [address]
[2025-07-15] MEDS: Nicotine (PBKC) 14 MG Patch TD (11:24)
--- NOTE | 2025-07-15 11:53 | CASEMGMT ---
RUPA POWELL Assessment Face to Face with patient for initial transition planning/care coordination assessment. RUPA POWELL introduced self and role at [facility]. Pt is currently disoriented. Pt's at the bedside and willing to assist. Jonathan states that the pt, Is the most anti-doctor person in the world. Pharmacy, and demographics verified. Admitting dx: Hypokalemia, Ascites, Encephalopathy LACE Strata: 1 PCP: No PCP. Pt's declines the list offered Specialists: Denies Preferred Pharmacy: [facility] Insurance: [facility] A/B, [facility] [place] Prescription Benefit: Yes LNOK: Jonathan (H) Living Arrangements: Pt lives with her in a tri-level home with 5 steps to enter ADLs/IADLs: states that he has been having to help the pt for the last month Transportation: DME: Denies. Pt is currently requiring additional oxygen and may qualify for home oxygen use. A verbal list of local in-network DME companies were provided to the pt's at this time. Prefers [employer] but reports that the pt may refuse. denies medical alert resources offered. Inquired if the pt has a FWW. denies. notified that [employer] can also provide FWW if the pt would desire. ? HHC/SNF: Denies hx of. Pt's informed that HHC cannot be established due to the pt not having a PCP. Encouraged establishment and follow up if HHC is wanted. Denies SNF. EtOH: Noted in the chart that the pt drinks 3-4 beers per day. Pt's denies SW f/u or cessation resources at this time. Pt?s goal: TBD Plan: TBD. Anticipate the pt will DC home with the once medically ready. Follow for oxygen and/or FWW needs. PT is pending. Pt to undergo paracentesis today. denies further questions or concerns at this time. Green sheet and DC readiness checklist completed in the case that the pt were to DC over the weekend and qualify for oxygen and/or a FWW. Pita Yeh RN, CM
--- NOTE | 2025-07-15 12:10 | FLU_PTH ---
PATIENT: KARLENE WINCHESTER LOC: MS3 U#:[id number] AGE/SX: 74/F ROOM: DC310 RE07/14/[address]: Dr. Turner Bingham MD : 1950 BED: 1 DIS: 07/18/2025 SPEC #: [id number] RECD: 07/15/25 12:44 STATUS: OVIDIO REQ #: [id number] RENATO: 07/15/25 12:[address]: Turner Bingham DEPT: CYTOLOGY RECD BY: Lupillo Tesfaye ENTERED: 07/15/25 13:56 SP TYPE: Fluid OTHR DR: No Primary Care Phys Tissues: A - PARACENTESIS FLUID Procedures: Special Stain Group II Surgery Specimen Level IV Cytospin Fluid HEADER OPERATION: Ultrasound guided paracentesis PRE-OP DIAGNOSIS: Ascites TISSUE SUBMITTED: A- Paracentesis fluid for cytology DIAGNOSIS CYTOLOGY A. Ascitic fluid, paracentesis (cytospin, cellblock): No malignant cells identified. CYTOLOGY STUDY Slides are reviewed. CYTOLOGY GROSS A. Received is 95 ml of yellow-cloudy fluid labeled with the patient's name and and designated per the requisition as Paracentesis fluid. Submitted for cytology and cell block preparation. 07/15/2025 CPT: 59954,21981
[2025-07-15 12:49] LABS: Cytology, Body Fluid / CSF SEE PATHOLOGY REPORT
[2025-07-15 13:23] LABS: Body Fluid Mononuclear WBC # 0.049 10^3/uL; Body Fluid Mononuclear WBC % 76.6 %; Body Fluid Polynuclear WBC # 0.015 10^3/uL; Body Fluid Polynuclear WBC % 23.4 %; White Blood Count/Body Fluid 0.064 10^3/uL
[2025-07-15 14:02] LABS: Red Cell Count/Body Fluid 8 /mm3
[2025-07-15 14:04] LABS: Glucose, Body Fluid 105 mg/dL (Not Establ.)
[2025-07-15 14:11] LABS: Appearance/Body Fluid CLEAR; Auto B Fluid Analyzer BKGD Ct COUNTS W/IN LIMITS (W/IN LIMITS); Color/Body Fluid YELLOW; Neutrophil (Segs) 9 %; Source- Body Fluid ASCITES FLUID
--- NOTE | 2025-07-15 15:30 | NURSING ---
report called to everett on ms3
[2025-07-15 15:41] LABS: Pathologist Comment/Body Fluid Reviewed
[2025-07-15] MEDS: 0.9% Normal Saline (500mL Bag) 500 ML 999 ML IV (16:53)
[2025-07-15] MEDS: Potassium Chloride Oral Tablet 20 MEQ PO (16:53)
[2025-07-15 17:24] LABS: Body Fluid QC Type(s) BF1
[2025-07-15] MEDS: Na Biphos/Potassium Phosphate PACKET 1 PACKET PO (20:20)
[2025-07-15] MEDS: Thiamine Hydrochloride 100 MG Tablet PO (20:21)
[2025-07-15] MEDS: 0.9% Normal Saline (1000mL) 1,000 ML 100 ML IV (22:44)
[2025-07-16] VITALS (9 sets, daily range): BP systolic 91–109; BP diastolic 65–78; PULSE 79–123; RESP 16–18; TEMP 36.1–36.8; O2SAT 93–97; BMI 21.0
[2025-07-16] MEDS: 0.9% Saline Lock 10 ML Syringe IV (05:04)
[2025-07-16 06:05] LABS: Hematocrit 42.3 % (37-47); Hemoglobin 14.9 g/dL (12.0-15.0); Immature Granulocytes Count 0.020 X10^3/uL (0.0-0.0); Mean Corp Hgb Conc 35.2 g/dL (32-36); Mean Corpuscular Volume 98.4 fL (81-99); Mean Platelet Vol. 10.2 fl (6.2-12.0); NRBC Flagged by Analyzer 0 % (0-5); Platelet Count 238 K/mm3 (150-450); RBC Distribution Width CV 13.2 % (11.6-14.6); RBC Distribution Width SD 46.9 fl (35.1-43.9); Red Blood Count 4.30 M/mm3 (4.2-5.4); White Blood Count 7.5 K/mm3 (4.4-11.0)
[2025-07-16 06:59] LABS: AST(SGOT) 44 U/L (<=31); Alanine Aminotransfer ALT/SGPT 16 U/L (<=34); Albumin, Serum 2.2 g/dL (3.4-4.8); Alkaline Phosphatase 90 U/L (35-104); Anion Gap 9 (5-15); BUN 8 mg/dL (4-19); BUN/Creat Ratio 15.5 RATIO (10-20); Bilirubin, Direct < 0.08 mg/dL (0.00-0.30); Calcium,Total 7.4 mg/dL (7.6-11.0); Carbon Dioxide 28.5 mmol/L (21.0-32.0); Chloride 100 mmol/L (98-108); Estimated Creatinine Clearance 45.85 ml/min (50-250); Globulin 2.8 g/dL (2.2-4.2); Glucose 113 mg/dL (70-99); Potassium 3.8 mmol/L (3.3-5.1)
--- NOTE | 2025-07-16 07:30 | PN.HOSP_ITS ---
Reason for Visit Chief Complaint: Generalized weakness Subjective Subjective Patient seen remains relatively lethargic. Patient is on phenobarb for alcohol withdrawal plan is to discontinue phenobarb. Urine cultures came back positive for Klebsiella pneumoniae sp pneum [place] Count 80,000-100,000 CFU/mL. Patient also underwent ultrasound-guided paracentesis with 2170 mL of ascitic fluid taken off. Ascitic fluid analysis reviewed not consistent with SBP Objective Data Objective Data Vital Signs: Vital Signs Temp Pulse Resp BP Pulse Ox O2 Del Method O2 Flow Rate 97.1 F L 83 16 94/67 96 Nasal Cannula 3 07/16/25 05:20 07/16/25 05:20 07/16/25 05:20 07/16/25 05:20 07/16/25 05:20 07/16/25 05:20 07/16/25 05:20 Oxygen Flow Rate (L/min) 3 Oxygen Delivery Method Nasal Cannula Weight: 50.6 kg Body Mass Index (BMI) 21.0 Intake & Output: Intake and Output for Last 24 Hours 07/14/25 07/15/25 07/16/25 23:59 23:59 23:59 Intake Total 2500 / 2500 1050 / 1050 Output Total 100 / 100 4545 / 4545 100 / 100 Balance 2400 / 2400 -3495 / -3495 -100 / -100 Lab / Micro Data 07/16/25 05:55 07/16/25 05:55 Labs: Laboratory Results - last 24 hr 07/15/25 12:10: Fluid Source ASCITES FLUID, Fluid Color YELLOW, Fluid Appearance CLEAR, Fluid WBC 0.064, Fluid RBC 8, Fluid Tot Cell Count 0.071 H, Fld Polynuclear WBCs # 0.015, Fld Polynuclear WBCs % 23.4, Fluid Mononuclear WBCs 0.049, Fld Mononuclear WBCs % 76.6, Fluid Neutrophils 9, Fluid Lymphocytes 41, Fluid Monocytes 39, Fluid Macrophages 8, Fld Mesothelial Cells 3, Fl Pathologist Comment Reviewed, Fluid Glucose 105, Fluid Total Protein 0.9, Fluid LDH 42, Fluid Comment 2 SEE COMMENT 07/16/25 05:55: WBC 7.5, RBC 4.30, Hgb 14.9, Hct 42.3, MCV 98.4, MCH 34.7 H, MCHC 35.2, RDW Std Deviation 46.9 H, RDW Coeff of Huyen 13.2, Plt Count 238, MPV 10.2, Immature Gran % (Auto) 0.300, Neut % (Auto) 65.0, Lymph % (Auto) 26.8, [place] % (Auto) 6.7, Eos % (Auto) 0.5, Baso % (Auto) 0.7, Absolute Neuts (auto) 4.8, Absolute Lymphs (auto) 2.00, Nucleated RBC % 0, Sodium 138, Potassium 3.8, Chloride 100, Carbon Dioxide 28.5, Anion Gap 9, BUN 8, Creatinine 0.53 L, Estim Creat Clear Calc 45.85 L, Est GFR (MDRD) Non-Af 96, BUN/Creatinine Ratio 15.5, G lucose 113 H, Calcium 7.4 L, Total Bilirubin 0.48, Direct Bilirubin < 0.08, AST 44 H, ALT 16, Alkaline Phosphatase 90, Total Protein 5.0 L, Albumin 2.2 L, Globulin 2.8 Micro: Microbiology 07/14/25 17:45 Urine Catheter - Catheter Urine Culture - Final Klebsiella pneumoniae sp pneum 07/14/25 11:41 Blood Culture (Wb) - Anticubital Left Blood Culture - Preliminary No growth in 48 hours. 07/14/25 09:10 Mucosa - Nose SARS-CoV-2, Influenza & RSV (PCR) - Final Radiography Diagnostic Testing: Radiology Impression Paracentesis Ultrasound 07/15/25 08:00 IMPRESSION: Successful therapeutic and diagnostic right abdominal paracentesis. Laboratory results pending. Reading Location: [place] [address] Physical Exam Narrative GENERAL: Lethargic but arousable HEENT: Atraumatic; normocephalic EYES; Anicteric, Normal Conjunctiva NECK; supple, normal thyroid, RESPIRATORY: Diminished to auscultation CARDIOVASCULAR: Regular S1 S2, GI: soft, normoactive bowel sounds, : No Renal angle tenderness; EXTREMITIES: No edema, no clubbing, MUSCULOSKELETAL: muscle wasting NEURO: Awake; no lateralizing signs. SKIN: No Rash PSYCH; Flat affect Assessment & Plan Assessment/Plan (1) Dehydration: (2) Cirrhosis of liver with ascites: (3) Metabolic encephalopathy: PLAN: Plan Patient is a 74-year-old lady who was brought to the emergency department with altered mental status 1. Acute metabolic encephalopathy ? Secondary to acute cystitis and chronic use of alcohol admitted to a monitored bed for subsequent care ? 07/15/2025; patient encephalopathy worsened by initiation of phenobarb initiated for her alcohol withdrawal did discuss with pharmacy to adjust doses ? 07/16/2025; with patient continued lethargy the phenobarb taper was discontinued 2. Acute cystitis Klebsiella pneumoniae sp pneum [place] Count 80,000-100,000 CFU/mL ? Patient was started on ceftriaxone urine culture sent slime ?07/15/2025; remains on ceftriaxone urine cultures pending ? 07/16/2025; urine cultures came back positive for Klebsiella pneumoniae sp pneum [place] Count 80,000-100,000 CFU/mL. Patient remains on appropriate antibiotics 3. Severe hypokalemia ? Secondary to decreased oral intake. Corrected per protocol also did check for phosphorus and magnesium level with plans to correct any further electrolyte abnormalities ? 07/15/2025; potassium up to 3.3 4. Elevated TSH ? May be secondary to euthyroid sick syndrome plan is to repeat TSH when patient is medically stable 5. Cirrhosis of the liver with diffuse ascites ? Secondary to alcohol use ordered ultrasound-guided paracentesis with diagnostic workup sent ? 07/16/2025 patient underwent ultrasound-guided paracentesis on 07/15/2025 with 2170 of ascitic fluid taken. Fluid analysis reviewed. Not consistent with SBP 7. Tobacco dependence ? Counseled on cessation, offered nicotine patch for tobacco cravings 8. Chronic alcohol dependence ? Counseled on cessation. Patient was. Start CIWA protocol she reduce her risk of withdrawal ? 07/15/2025; patient was started on phenobarb taper for possible alcohol withdrawal 9. Suspected severe protein calorie malnutrition ? As evidenced by muscle wasting and decreased energy level and decreased oral intake consult placed to dietitian 10 .DVT prophylaxis ? Placed on Lovenox 11. Hypophosphatemia ? Corrected per protocol repeat phosphate levels ordered for a.m. ? 07/15/2025; patient phosphate levels remain low we will continue to monitor Charges/Coding Visit Charges Inpatient E&M: 61305 Subs Hosp L2
[2025-07-16] MEDS: 0.9% Normal Saline (1000mL) 1,000 ML 100 ML IV ×2 (08:31→18:41)
[2025-07-16] MEDS: Nicotine (PBKC) 14 MG Patch TD (10:47)
[2025-07-16] MEDS: Potassium Chloride Oral Tablet 20 MEQ PO ×2 (10:48→16:29)
[2025-07-16] MEDS: Thiamine Hydrochloride 100 MG Tablet PO (10:48)
[2025-07-16] MEDS: Na Biphos/Potassium Phosphate PACKET 1 PACKET PO ×2 (10:49→20:16)
[2025-07-16] MEDS: Ensure Plus High Protein 120 ML LIQUID PO (11:08)
--- NOTE | 2025-07-16 11:43 | CASEMGMT ---
Social Work SW met with pt and introduced self and role of SW. SW spoke with pt regarding alcohol use. Pt states that she does drink daily and uses wine and liquor. Pt is unable to state how much she drinks each day. SW spoke with pt regarding cessation and pt does not have a desire to stop drinking at this time and denies need for substance use resources. SW informed pt that SW remains available if pt changes her mind. CO[place]
[2025-07-16 13:08] LABS: Albumin, Body Fluid 0.4 g/dL (Not Estab.)
--- NOTE | 2025-07-16 15:54 | CASEMGMT ---
RUPA POWELL into pt room, pt just finishing working with therapy. Therapy spoke with pt regarding safety and the benefits of daily skilled therapy. Pt reports he is POA for healthcare. Pt oriented to self only, did not know where she was, who president is and thought it was . Pt lives in [facility] home. Pt is agreeable to staying in the hospital for therapy but does not want to go to a assisted in the community. Pt agreeable to this and states he will only allow her to go to [facility]. They deny the need for a list of other options. They are aware referral will be made and if they are unable to accept, we will look at an alternative plan. Pt agreeable to this. Pt dtr present in room but not where pt could see her. RUPA POWELL to follow.
[2025-07-17] VITALS (7 sets, daily range): BP systolic 90–122; BP diastolic 59–75; PULSE 70–78; RESP 16–18; TEMP 36.4–37.1; O2SAT 97–98; BMI 21.5
[2025-07-17] MEDS: 0.9% Normal Saline (1000mL) 1,000 ML 100 ML IV ×2 (04:10→18:45)
[2025-07-17 06:10] LABS: Hematocrit 38.3 % (37-47); Hemoglobin 13.1 g/dL (12.0-15.0); Immature Granulocytes Count 0.040 X10^3/uL (0.0-0.0); Mean Corp Hgb Conc 34.2 g/dL (32-36); Mean Corpuscular Volume 99.0 fL (81-99); Mean Platelet Vol. 10.2 fl (6.2-12.0); NRBC Flagged by Analyzer 0 % (0-5); Platelet Count 240 K/mm3 (150-450); RBC Distribution Width CV 13.7 % (11.6-14.6); RBC Distribution Width SD 49.4 fl (35.1-43.9); Red Blood Count 3.87 M/mm3 (4.2-5.4); White Blood Count 7.2 K/mm3 (4.4-11.0)
[2025-07-17 06:31] LABS: AST(SGOT) 31 U/L (<=31); Alanine Aminotransfer ALT/SGPT 18 U/L (<=34); Albumin, Serum 2.1 g/dL (3.4-4.8); Alkaline Phosphatase 71 U/L (35-104); Anion Gap 6 (5-15); BUN 7 mg/dL (4-19); BUN/Creat Ratio 16.6 RATIO (10-20); Bilirubin, Direct 0.23 mg/dL (0.00-0.30); Calcium,Total 7.0 mg/dL (7.6-11.0); Carbon Dioxide 27.2 mmol/L (21.0-32.0); Chloride 106 mmol/L (98-108); Estimated Creatinine Clearance 45.85 ml/min (50-250); Globulin 1.8 g/dL (2.2-4.2); Glucose 111 mg/dL (70-99); Potassium 3.3 mmol/L (3.3-5.1)
--- NOTE | 2025-07-17 08:01 | PN.HOSP_ITS ---
Reason for Visit Chief Complaint: Generalized weakness Subjective Subjective Patient seen much more interactive compared to previous day. Patient's phenobarb had been discontinued the day prior. Did discuss with patient about possibility of being discharged to a custodial facility. Patient is agreeable. Had a discussion with patient's family ( and son) the day prior Objective Data Objective Data Vital Signs: Vital Signs Temp Pulse Resp BP Pulse Ox O2 Del Method O2 Flow Rate 98.1 F 71 16 95/69 97 Nasal Cannula 2 07/17/25 04:00 07/17/25 04:00 07/17/25 04:00 07/17/25 04:00 07/17/25 04:00 07/17/25 07:38 07/17/25 07:38 Oxygen Flow Rate (L/min) 2 Oxygen Delivery Method Nasal Cannula Weight: 51.8 kg Body Mass Index (BMI) 21.5 Intake & Output: Intake and Output for Last 24 Hours 07/15/25 07/16/25 07/17/25 23:59 23:59 23:59 Intake Total 1050 / 1050 2678.33 / 2678.33 1098.33 / 1098.33 Output Total 4545 / 4545 100 / 100 Balance -3495 / -3495 2578.33 / 2578.33 1098.33 / 1098.33 Medical Nutrition Assessment Dietitian: Malnutrition Criteria Met Start: 07/16/25 14:48 Freq: Status: Active Protocol: Document 07/16/25 14:48 RMA (Rec: 07/16/25 14:48 RMA [id number]) Nutrition Malnutrition Evidence of Yes Malnutrition Exists Malnutrition (severe Chronic ): Evidenced By Suboptimal Energy Intake (Severe),Weight Loss (Severe) Clinical Problem Chronic Disease or Condition Related Malnutrition Etiology severe protein-calorie malnutrition in the context of chronic disease related to alcohol abuse and inadequate oral intake Signs/Symptoms as evidenced by ~7-10% unintentional weight loss x past 3-6 months; BMI 21.1; fluid weight/ascites likely masking further weight loss; PO meeting less than 50% estimated nutrition needs x 1-2 months; currently poor PO at meals <50% consumed Status Active Problem Recommendation Dietitian Continue regular diet for now; restrict sodium as Recommendations/ needed once PO improves. Changes Will add magic cup with lunch and dinner. Will continue 120mL ensure plus HP 4 times per day with medpass as tolerated. Will trend weights and adjust ONS as needed. Lab / Micro Data 07/17/25 06:00 07/17/25 06:00 Labs: Laboratory Results - last 24 hr 07/14/25 12:10: Fluid Albumin 0.4 07/17/25 06:00: WBC 7.2, RBC 3.87 L, Hgb 13.1, Hct 38.3, MCV 99.0, MCH 33.9 H, MCHC 34.2, RDW Std Deviation 49.4 H, RDW Coeff of Huyen 13.7, Plt Count 240, MPV 10.2, Immature Gran % (Auto) 0.600, Neut % (Auto) 61.5, Lymph % (Auto) 29.4, [place] % (Auto) 6.7, Eos % (Auto) 0.8, Baso % (Auto) 1.0, Absolute Neuts (auto) 4.4, Absolute Lymphs (auto) 2.10, Nucleated RBC % 0, Sodium 139, Potassium 3.3, Chloride 106, Carbon Dioxide 27.2, Anion Gap 6, BUN 7, Creatinine 0.45 L, Estim Creat Clear Calc 45.85 L, Est GFR (MDRD) Non-Af 100, BUN/Creatinine Ratio 16.6, Glucose 111 H, Calcium 7.0 L, Total Bilirubin 0.34, Direct Bilirubin 0.23, AST 31, ALT 18, Alkaline Phosphatase 71, Total Protein 3.9 L, Albumin 2.1 L, G lobulin 1.8 L Micro: Microbiology 07/14/25 17:45 Urine Catheter - Catheter Urine Culture - Final Klebsiella pneumoniae sp pneum 07/14/25 11:41 Blood Culture (Wb) - Anticubital Left Blood Culture - Preliminary No growth in 48 hours. 07/14/25 09:10 Mucosa - Nose SARS-CoV-2, Influenza & RSV (PCR) - Final Physical Exam Narrative GENERAL: Lethargic but arousable HEENT: Atraumatic; normocephalic EYES; Anicteric, Normal Conjunctiva NECK; supple, normal thyroid, RESPIRATORY: Diminished to auscultation CARDIOVASCULAR: Regular S1 S2, GI: soft, normoactive bowel sounds, : No Renal angle tenderness; EXTREMITIES: No edema, no clubbing, MUSCULOSKELETAL: muscle wasting NEURO: Awake; no lateralizing signs. SKIN: No Rash PSYCH; Flat affect Assessment & Plan Assessment/Plan (1) Dehydration: (2) Cirrhosis of liver with ascites: (3) Metabolic encephalopathy: PLAN: Plan Patient is a 74-year-old lady who was brought to the emergency department with altered mental status 1. Acute metabolic encephalopathy ? Secondary to acute cystitis and chronic use of alcohol admitted to a monitored bed for subsequent care ? 07/15/2025; patient encephalopathy worsened by initiation of phenobarb initiated for her alcohol withdrawal did discuss with pharmacy to adjust doses ? 07/16/2025; with patient continued lethargy the phenobarb taper was discontinued ? 07/17/2025; patient level of sensorium continues to improve 2. Acute cystitis Klebsiella pneumoniae sp pneum [place] Count 80,000-100,000 CFU/mL ? Patient was started on ceftriaxone urine culture sent slime ?07/15/2025; remains on ceftriaxone urine cultures pending ? 07/16/2025; urine cultures came back positive for Klebsiella pneumoniae sp pneum [place] Count 80,000-100,000 CFU/mL. Patient remains on appropriate antibiotics ? Did switch patient from IV ceftriaxone to p.o. ciprofloxacin 3. Severe hypokalemia ? Secondary to decreased oral intake. Corrected per protocol also did check for phosphorus and magnesium level with plans to correct any further electrolyte abnormalities ? 07/15/2025; potassium up to 3.3 4. Elevated TSH ? May be secondary to euthyroid sick syndrome plan is to repeat TSH when patient is medically stable 5. Cirrhosis of the liver with diffuse ascites ? Secondary to alcohol use ordered ultrasound-guided paracentesis with diagnostic workup sent ? 07/16/2025 patient underwent ultrasound-guided paracentesis on 07/15/2025 with 2170 of ascitic fluid taken. Fluid analysis reviewed. Not consistent with SBP 7. Tobacco dependence ? Counseled on cessation, offered nicotine patch for tobacco cravings 8. Chronic alcohol dependence ? Counseled on cessation. Patient was. Start CIWA protocol she reduce her risk of withdrawal ? 07/15/2025; patient was started on phenobarb taper for possible alcohol withdrawal 9. Suspected severe protein calorie malnutrition ? As evidenced by muscle wasting and decreased energy level and decreased oral intake consult placed to dietitian 10 .DVT prophylaxis ? Placed on Lovenox 11. Hypophosphatemia ? Corrected per protocol repeat phosphate levels ordered for a.m. ? 07/15/2025; patient phosphate levels remain low we will continue to monitor 12. Physical deconditioning ? Requested for PT OT eval and social media manager to assist with discharge planning; Did discuss with patient about possibility of being discharged to a custodial facility. Patient is agreeable. Had a discussion with patient's family ( and son) the day prior ? Charges/Coding Visit Charges Inpatient E&M: 50657 Subs Hosp L2
[2025-07-17] MEDS: Potassium Chloride Oral Tablet 20 MEQ PO ×2 (10:33→17:39)
[2025-07-17] MEDS: Thiamine Hydrochloride 100 MG Tablet PO (10:40)
[2025-07-17] MEDS: Ensure Plus High Protein 120 ML LIQUID PO ×4 (10:40→21:32)
[2025-07-17] MEDS: Na Biphos/Potassium Phosphate PACKET 1 PACKET PO ×2 (10:40→21:32)
[2025-07-17] MEDS: Nicotine (PBKC) 14 MG Patch TD (10:41)
[2025-07-18] VITALS (11 sets, daily range): BP systolic 79–114; BP diastolic 54–82; PULSE 67–149; RESP 16–20; TEMP 36.4–36.8; O2SAT 93–97; BMI 23.4
[2025-07-18] MEDS: 0.9% Normal Saline (1000mL) 1,000 ML 100 ML IV (03:25)
--- NOTE | 2025-07-18 06:08 | EKG12_ITS ---
Test Reason : ARRYTH Blood Pressure : */* mmHG Vent. Rate : 144 BPM Atrial Rate : 144 BPM P-R Int : 120 ms QRS Dur : 98 ms QT Int : 350 ms P-R-T Axes : * -45 64 degrees QTcB Int : 541 ms Critical Test Result: High HR ATRIAL FLUTTER Left axis deviation Inferior infarct , age undetermined Anteroseptal infarct , age undetermined Abnormal ECG Confirmed by Lexx Cervantes (Susana), web editor MARYAN RAE ([id number]) on 07/19/2025 11:35:52 AM Also confirmed by Lexx Cervantes ([id number]), web editor MARYAN RAE ([id number]) on 07/20/2025 9:38:33 AM Referred By: Confirmed By: Lexx Cervantes
--- NOTE | 2025-07-18 06:11 | EKG12_ITS ---
Test Reason : AARTHMIA Blood Pressure : */* mmHG Vent. Rate : 145 BPM Atrial Rate : * BPM P-R Int : * ms QRS Dur : 96 ms QT Int : 348 ms P-R-T Axes : * -55 92 degrees QTcB Int : 540 ms Critical Test Result: High HR Supraventricular tachycardia Left axis deviation Inferior infarct , age undetermined Anteroseptal infarct , age undetermined Abnormal ECG When compared with ECG of 18-Jul-2025 06:10, MANUAL COMPARISON REQUIRED DATA IS UNCONFIRMED Confirmed by Lexx Cervantes ([id number]), editor publications KINDRA RAMACHANDRAN ([id number]) on 07/25/2025 7:54:27 AM Referred By: LIA Confirmed By: Lexx Cervantes
--- NOTE | 2025-07-18 06:24 | EKG12_ITS ---
Test Reason : AARTHMIA Blood Pressure : */* mmHG Vent. Rate : 88 BPM Atrial Rate : 88 BPM P-R Int : 136 ms QRS Dur : 102 ms QT Int : 410 ms P-R-T Axes : -32 -52 71 degrees QTcB Int : 496 ms Unusual P axis, possible ectopic atrial rhythm Left axis deviation Inferior infarct , age undetermined Anteroseptal infarct Abnormal ECG When compared with ECG of 14-Jul-2025 06:30, Significant changes have occurred Confirmed by Lexx Cervantes ([id number]), school photograph editor MARYAN RAE ([id number]) on 07/19/2025 11:45:02 AM Also confirmed by Lexx Cervantes ([id number]), school photograph editor MARYAN RAE ([id number]) on 07/20/2025 10:12:20 AM Referred By: LIA Confirmed By: Lexx Cervantes
--- NOTE | 2025-07-18 06:26 | NURSING ---
Primary RN notified Dr. Green of patient heart rate of 130s and low bps. EKG sent to . Patient placed on tele. Labs ordered.
--- NOTE | 2025-07-18 07:16 | PCM.PN.HOSP ---
Reason for Visit Chief Complaint: Generalized weakness Subjective Subjective Patient seen clinical condition continues to improve. Much more interactive this morning. Patient has had runs of PSVT. Blood pressure remains relatively low. Had been started on midodrine the day prior Objective Data Objective Data Vital Signs: Vital Signs Temp Pulse Resp BP Pulse Ox O2 Del Method O2 Flow Rate 98.2 F 85 18 84/54 L 93 Nasal Cannula 2 07/18/25 07:00 07/18/25 07:00 07/18/25 07:00 07/18/25 07:00 07/18/25 07:00 07/18/25 07:00 07/18/25 07:00 Oxygen Flow Rate (L/min) 2 Oxygen Delivery Method Nasal Cannula Weight: 56.245 kg Body Mass Index (BMI) 23.4 Intake & Output: Intake and Output for Last 24 Hours 07/16/25 07/17/25 07/18/25 23:59 23:59 23:59 Intake Total 2678.33 / 2678.33 3098.33 / 3098.33 936.67 / 936.67 Output Total 100 / 100 Balance 2578.33 / 2578.33 3098.33 / 3098.33 936.67 / 936.67 Medical Nutrition Assessment Dietitian: Malnutrition Criteria Met Start: 07/16/25 14:48 Freq: Status: Active Protocol: Document 07/16/25 14:48 RMA (Rec: 07/16/25 14:48 RMA [id number]) Nutrition Malnutrition Evidence of Yes Malnutrition Exists Malnutrition (severe Chronic ): Evidenced By Suboptimal Energy Intake (Severe),Weight Loss (Severe) Clinical Problem Chronic Disease or Condition Related Malnutrition Etiology severe protein-calorie malnutrition in the context of chronic disease related to alcohol abuse and inadequate oral intake Signs/Symptoms as evidenced by ~7-10% unintentional weight loss x past 3-6 months; BMI 21.1; fluid weight/ascites likely masking further weight loss; PO meeting less than 50% estimated nutrition needs x 1-2 months; currently poor PO at meals <50% consumed Status Active Problem Recommendation Dietitian Continue regular diet for now; restrict sodium as Recommendations/ needed once PO improves. Changes Will add magic cup with lunch and dinner. Will continue 120mL ensure plus HP 4 times per day with medpass as tolerated. Will trend weights and adjust ONS as needed. Lab / Micro Data 07/18/25 06:45 07/18/25 06:45 Micro: Microbiology 07/14/25 17:45 Urine Catheter - Catheter Urine Culture - Final Klebsiella pneumoniae sp pneum 07/14/25 11:41 Blood Culture (Wb) - Anticubital Left Blood Culture - Preliminary No growth in 48 hours. 07/14/25 09:10 Mucosa - Nose SARS-CoV-2, Influenza & RSV (PCR) - Final Physical Exam Narrative GENERAL: Lethargic but arousable HEENT: Atraumatic; normocephalic EYES; Anicteric, Normal Conjunctiva NECK; supple, normal thyroid, RESPIRATORY: Diminished to auscultation CARDIOVASCULAR: Regular S1 S2, GI: soft, normoactive bowel sounds, : No Renal angle tenderness; EXTREMITIES: No edema, no clubbing, MUSCULOSKELETAL: muscle wasting NEURO: Awake; no lateralizing signs. SKIN: No Rash PSYCH; Flat affect Assessment & Plan Assessment/Plan (1) Dehydration: (2) Cirrhosis of liver with ascites: (3) Metabolic encephalopathy: PLAN: Plan Patient is a 74-year-old lady who was brought to the emergency department with altered mental status 1. Acute metabolic encephalopathy ? Secondary to acute cystitis and chronic use of alcohol admitted to a monitored bed for subsequent care ? 07/15/2025; patient encephalopathy worsened by initiation of phenobarb initiated for her alcohol withdrawal did discuss with pharmacy to adjust doses ? 07/16/2025; with patient continued lethargy the phenobarb taper was discontinued ? 07/17/2025; patient level of sensorium continues to improve ? 07/18/2025; encephalopathy resolved 2. Acute cystitis Klebsiella pneumoniae sp pneum [place] Count 80,000-100,000 CFU/mL ? Patient was started on ceftriaxone urine culture sent slime ?07/15/2025; remains on ceftriaxone urine cultures pending ? 07/16/2025; urine cultures came back positive for Klebsiella pneumoniae sp pneum [place] Count 80,000-100,000 CFU/mL. Patient remains on appropriate antibiotics ? Did switch patient from IV ceftriaxone to p.o. ciprofloxacin 3. Severe hypokalemia ? Secondary to decreased oral intake. Corrected per protocol also did check for phosphorus and magnesium level with plans to correct any further electrolyte abnormalities ? 07/15/2025; potassium up to 3.3 4. Elevated TSH ? May be secondary to euthyroid sick syndrome plan is to repeat TSH when patient is medically stable 5. Cirrhosis of the liver with diffuse ascites ? Secondary to alcohol use ordered ultrasound-guided paracentesis with diagnostic workup sent ? 07/16/2025 patient underwent ultrasound-guided paracentesis on 07/15/2025 with 2170 of ascitic fluid taken. Fluid analysis reviewed. Not consistent with SBP 7. Tobacco dependence ? Counseled on cessation, offered nicotine patch for tobacco cravings 8. Chronic alcohol dependence ? Counseled on cessation. Patient was. Start CIWA protocol she reduce her risk of withdrawal ? 07/15/2025; patient was started on phenobarb taper for possible alcohol withdrawal 9. Suspected severe protein calorie malnutrition ? As evidenced by muscle wasting and decreased energy level and decreased oral intake consult placed to dietitian 10 .DVT prophylaxis ? Placed on Lovenox 11. Hypophosphatemia ? Corrected per protocol repeat phosphate levels ordered for a.m. ? 07/15/2025; patient phosphate levels remain low we will continue to monitor 12. Physical deconditioning ? Requested for PT OT eval and manager social media to assist with discharge planning; Did discuss with patient about possibility of being discharged to a assisted facility. Patient is agreeable. Had a discussion with patient's family ( and son) the day prior 13. Hypotension ? Patient is on midodrine Time spent in the patient's overall evaluation,decision-making process, review of diagnostic data, adjustment of management, discussion with other providers, nursing nursing and ancillary staff involved in patient's care documentation, 32 Minutes Charges/Coding Visit Charges Inpatient E&M: 35132 [facility] Hosp L2
[2025-07-18 07:21] LABS: Anion Gap 10 (5-15); BUN 9 mg/dL (4-19); BUN/Creat Ratio 17.8 RATIO (10-20); Calcium,Total 7.2 mg/dL (7.6-11.0); Carbon Dioxide 20.7 mmol/L (21.0-32.0); Chloride 108 mmol/L (98-108); Estimated Creatinine Clearance 45.85 ml/min (50-250); Glucose 87 mg/dL (70-99); Hematocrit 39.2 % (37-47); Hemoglobin 13.2 g/dL (12.0-15.0); Immature Granulocytes Count 0.030 X10^3/uL (0.0-0.0); Mean Corp Hgb Conc 33.7 g/dL (32-36); Mean Corpuscular Volume 100.0 fL (81-99); Mean Platelet Vol. 11.2 fl (6.2-12.0); NRBC Flagged by Analyzer 0 % (0-5); POSITIVE COUNT YES; Potassium 3.8 mmol/L (3.3-5.1); RBC Distribution Width CV 13.7 % (11.6-14.6); RBC Distribution Width SD 50.5 fl (35.1-43.9); Red Blood Count 3.92 M/mm3 (4.2-5.4); White Blood Count 8.4 K/mm3 (4.4-11.0)
[2025-07-18 08:03] LABS: Differential Indicated SCAN CRITERIA MET
[2025-07-18] MEDS: Ensure Plus High Protein 120 ML LIQUID PO (08:24)
[2025-07-18] MEDS: Thiamine Hydrochloride 100 MG Tablet PO (08:24)
[2025-07-18] MEDS: Potassium Chloride Oral Tablet 20 MEQ PO (08:24)
[2025-07-18] MEDS: 0.9% Saline Lock 10 ML Syringe IV (09:37)
[2025-07-18] MEDS: Na Biphos/Potassium Phosphate PACKET 1 PACKET PO (10:32)
[2025-07-18] MEDS: Nicotine (PBKC) 14 MG Patch TD (10:34)
--- NOTE | 2025-07-18 13:16 | CASEMGMT ---
Addendum entered by Candace Shaffer 07/18/25 13:43: TFR to ext care and signed med list tubed to [facility]. Pt nurse aware she may call report. Filed signed med list in pt chart. Original Note: Pt accepted at [facility]. per hospitalist, pt is medically ready to dc. RN CM into pt room, pt is aware as well as that she is accepted. Pt is aware that she will be transferred over today. Pt denies any further needs at this time.
--- NOTE | 2025-07-18 13:16 | PCM.TXEXTCAR ---
Diet Diet Order/Speech Therapy: INPATIENT Hospital Diet / Speech Therapy Order(s) 07/14/25 11:17 Diet: Regular - General Food consistency:: Regular Liquid Consistency:: Regular/Thin Type of Dietary Supplement:: Magic Cup Dessert Diet Comments: magic cup with lunch and dinner Routine Orders/Code Status Code Status: Full Code DC O2, CPAP, BIPAP needs Home O2 Discharge instructions: Yes Type of respiratory needs?: Oxygen Oxygen frequency: Continuous Continuous oxygen liters per minute: 2 Wound(s) Sacrum: Wound Type: Pressure Injury Therapies Physical Therapy: Eval and Treat Occupational Therapy: Eval and Treat Problem/Diagnosis (1) Dehydration: Status: Acute Code(s): E86.0 - Dehydration (2) Cirrhosis of liver with ascites: Status: Acute Code(s): K74.60 - Unspecified cirrhosis of liver; K72.90 - Hepatic failure, unspecified without coma (3) Metabolic encephalopathy: Status: Acute Code(s): G93.41 - Metabolic encephalopathy Plan Patient is a 74-year-old lady who was brought to the emergency department with altered mental status 1. Acute metabolic encephalopathy ? Secondary to acute cystitis and chronic use of alcohol admitted to a monitored bed for subsequent care ? 07/15/2025; patient encephalopathy worsened by initiation of phenobarb initiated for her alcohol withdrawal did discuss with pharmacy to adjust doses ? 07/16/2025; with patient continued lethargy the phenobarb taper was discontinued ? 07/17/2025; patient level of sensorium continues to improve ? 07/18/2025; encephalopathy resolved 2. Acute cystitis Klebsiella pneumoniae sp pneum [place] Count 80,000-100,000 CFU/mL ? Patient was started on ceftriaxone urine culture sent slime ?07/15/2025; remains on ceftriaxone urine cultures pending ? 07/16/2025; urine cultures came back positive for Klebsiella pneumoniae sp pneum [place] Count 80,000-100,000 CFU/mL. Patient remains on appropriate antibiotics ? Did switch patient from IV ceftriaxone to p.o. ciprofloxacin 3. Severe hypokalemia ? Secondary to decreased oral intake. Corrected per protocol also did check for phosphorus and magnesium level with plans to correct any further electrolyte abnormalities ? 07/15/2025; potassium up to 3.3 4. Elevated TSH ? May be secondary to euthyroid sick syndrome plan is to repeat TSH when patient is medically stable 5. Cirrhosis of the liver with diffuse ascites ? Secondary to alcohol use ordered ultrasound-guided paracentesis with diagnostic workup sent ? 07/16/2025 patient underwent ultrasound-guided paracentesis on 07/15/2025 with 2170 of ascitic fluid taken. Fluid analysis reviewed. Not consistent with SBP 7. Tobacco dependence ? Counseled on cessation, offered nicotine patch for tobacco cravings 8. Chronic alcohol dependence ? Counseled on cessation. Patient was. Start CIWA protocol she reduce her risk of withdrawal ? 07/15/2025; patient was started on phenobarb taper for possible alcohol withdrawal 9. Suspected severe protein calorie malnutrition ? As evidenced by muscle wasting and decreased energy level and decreased oral intake consult placed to dietitian 10 .DVT prophylaxis ? Placed on Lovenox 11. Hypophosphatemia ? Corrected per protocol repeat phosphate levels ordered for a.m. ? 07/15/2025; patient phosphate levels remain low we will continue to monitor 12. Physical deconditioning ? Requested for PT OT eval and health and social care teacher to assist with discharge planning; Did discuss with patient about possibility of being discharged to a senior care facility. Patient is agreeable. Had a discussion with patient's family ( and son) the day prior 13. Hypotension ? Patient is on midodrine Time spent in the patient's overall evaluation,decision-making process, review of diagnostic data, adjustment of management, discussion with other providers, nursing nursing and ancillary staff involved in patient's care documentation, 32 Minutes Allergies/Procedures Done in Hospital Allergies No Known Allergies Allergy (Verified 07/14/25 06:20) Type of Care/Length of Stay Estimated LOS: Convalescent Care Less Than 30 days Type of Care Needed: Skilled Rehab Potential: Good Prognosis: Good Additional Orders/Day of Discharge Day of Discharge: 07/18/25 Dietary and Speech Recommendations Dietitian Recommendations/Changes: Continue regular diet for now; restrict sodium as needed once PO improves. Will add magic cup with lunch and dinner. Will continue 120mL ensure plus HP 4 times per day with medpass as tolerated. Will trend weights and adjust ONS as needed. Discharge Plan Admission Admit Date/Time: 07/14/25 08:26 Attending Provider: Turner Bingham Primary Care Provider: Care Physician,Lynette Primary Discharge Orders/Prescriptions Prescriptions: New furosemide 40 mg Tablet 20 mg PO DAILY Qty: 0 0RF acetaminophen 325 mg Tablet 650 mg PO Q6H PRN PRN (Reason: Pain 1-10 Or Fever>100.7) Qty: 0 0RF loperamide 2 mg Capsule 2 mg PO Q4H PRN PRN (Reason: Diarrhea/Loose Stools) Qty: 0 0RF midodrine 5 mg Tablet 10 mg PO TIDCM Qty: 0 0RF potassium chloride 20 mEq Tablet,Er Particles/Crystals 20 meq PO BIDCM Qty: 0 0RF folic acid 1 mg Tablet 1 mg PO DAILY@0800 Qty: 0 0RF dicyclomine 10 mg Capsule 20 mg PO Q6H PRN PRN (Reason: abdominal discomfort) Qty: 0 0RF alum-mag hydroxide-simeth [Mag-Al Plus Extra Strength] 400-400-40 mg/5 mL Suspension 30 ml PO Q6H PRN PRN (Reason: Gastric Burning) Qty: 0 0RF hydroxyzine pamoate 25 mg Capsule 50 mg PO Q4H PRN PRN (Reason: mild anxiety) Qty: 0 0RF potassium, sodium phosphates 280-160-250 mg Powder In Packet 1 packet PO BID Qty: 0 0RF Ensure Plus High Protein 0.08 gram-1.5 kcal/mL Liquid 120 ml PO 4X/DAY Qty: 0 0RF nicotine 14 mg/24 hr Patch 24 Hour 14 mg transdermal DAILY Qty: 0 0RF sennosides-docusate sodium [Stimulant Laxative Plus] 8.6-50 mg Tablet 2 tab PO BID PRN PRN (Reason: Constipation) Qty: 0 0RF thiamine HCl (vitamin B1) 100 mg Tablet 100 mg PO DAILYCM Qty: 0 0RF spironolactone 25 mg Tablet 12.5 mg PO DAILY Qty: 0 0RF Referrals / Follow Up: Victorino Romo MD [Med Staff - Active Staff, Internal Medicine] - Within 1 Month Problems: Cirrhosis of liver with ascites Care Physician,No Primary [Primary Care Provider, Medical] Disposition Disposition (needs filled in before D/C Order can be placed): [facility]
--- NOTE | 2025-07-18 13:22 | DS.PCM_ITS ---
Providers Date of Admission: 07/14/25 Date of Discharge: 07/18/25 Primary Care Physician: No Primary Care Phys Reason For Visit: HYPOKALEMIA, ASCITES, ENCEPHALOPATHY Diagnosis Discharge Diagnosis (1) Dehydration: Status: Acute Code(s): E86.0 - Dehydration (2) Cirrhosis of liver with ascites: Status: Acute Code(s): K74.60 - Unspecified cirrhosis of liver; K72.90 - Hepatic failure, unspecified without coma (3) Metabolic encephalopathy: Status: Acute Code(s): G93.41 - Metabolic encephalopathy Plan Patient is a 74-year-old lady who was brought to the emergency department with altered mental status 1. Acute metabolic encephalopathy ? Secondary to acute cystitis and chronic use of alcohol admitted to a monitored bed for subsequent care ? 07/15/2025; patient encephalopathy worsened by initiation of phenobarb initiated for her alcohol withdrawal did discuss with pharmacy to adjust doses ? 07/16/2025; with patient continued lethargy the phenobarb taper was discontinued ? 07/17/2025; patient level of sensorium continues to improve ? 07/18/2025; encephalopathy resolved 2. Acute cystitis Klebsiella pneumoniae sp pneum [place] Count 80,000-100,000 CFU/mL ? Patient was started on ceftriaxone urine culture sent slime ?07/15/2025; remains on ceftriaxone urine cultures pending ? 07/16/2025; urine cultures came back positive for Klebsiella pneumoniae sp pneum [place] Count 80,000-100,000 CFU/mL. Patient remains on appropriate antibiotics ? Did switch patient from IV ceftriaxone to p.o. ciprofloxacin 3. Severe hypokalemia ? Secondary to decreased oral intake. Corrected per protocol also did check for phosphorus and magnesium level with plans to correct any further electrolyte abnormalities ? 07/15/2025; potassium up to 3.3 4. Elevated TSH ? May be secondary to euthyroid sick syndrome plan is to repeat TSH when patient is medically stable 5. Cirrhosis of the liver with diffuse ascites ? Secondary to alcohol use ordered ultrasound-guided paracentesis with diagnostic workup sent ? 07/16/2025 patient underwent ultrasound-guided paracentesis on 07/15/2025 with 2170 of ascitic fluid taken. Fluid analysis reviewed. Not consistent with SBP 7. Tobacco dependence ? Counseled on cessation, offered nicotine patch for tobacco cravings 8. Chronic alcohol dependence ? Counseled on cessation. Patient was. Start CIWA protocol she reduce her risk of withdrawal ? 07/15/2025; patient was started on phenobarb taper for possible alcohol withdrawal 9. Suspected severe protein calorie malnutrition ? As evidenced by muscle wasting and decreased energy level and decreased oral intake consult placed to dietitian 10 .DVT prophylaxis ? Placed on Lovenox 11. Hypophosphatemia ? Corrected per protocol repeat phosphate levels ordered for a.m. ? 07/15/2025; patient phosphate levels remain low we will continue to monitor 12. Physical deconditioning ? Requested for PT OT eval and social work therapist to assist with discharge planning; Did discuss with patient about possibility of being discharged to a [facility] facility. Patient is agreeable. Had a discussion with patient's family ( and son) the day prior 13. Hypotension ? Patient is on midodrine Time spent in the patient's overall evaluation,decision-making process, review of diagnostic data, adjustment of management, discussion with other providers, nursing nursing and ancillary staff involved in patient's care documentation, 32 Minutes Medications at Discharge Home Medications acetaminophen 325 mg tablet 650 mg (2 x 325 mg) PO Q6H PRN PRN Pain 1-10 Or Fever>100.7 #0 tabs 07/18/25 aluminum-mag hydroxide-simethicone 400 mg-400 mg-40 mg/5 mL oral susp (Mag-Al Plus Extra Strength) 30 ml PO Q6H PRN PRN Gastric Burning #0 mL 07/18/25 dicyclomine 10 mg capsule 20 mg (2 x 10 mg) PO Q6H PRN PRN abdominal discomfort #0 caps 07/18/25 folic acid 1 mg tablet 1 mg PO DAILY@0800 #0 tabs 07/18/25 food supplemt, lactose-reduced 0.08 gram-1.5 kcal/mL oral liquid (Ensure Plus High Protein) 120 ml PO 4X/DAY #0 mL 07/18/25 furosemide 40 mg tablet 20 mg (1/2 x 40 mg) PO DAILY #0 tabs 07/18/25 hydroxyzine pamoate 25 mg capsule 50 mg (2 x 25 mg) PO Q4H PRN PRN mild anxiety #0 caps 07/18/25 loperamide 2 mg capsule 2 mg PO Q4H PRN PRN Diarrhea/Loose Stools #0 caps 07/18/25 midodrine 5 mg tablet 10 mg (2 x 5 mg) PO TIDCM #0 tabs 07/18/25 nicotine 14 mg/24 hr daily transdermal patch 14 mg transdermal DAILY #0 ea 07/18/25 potassium chloride 20 mEq tablet,extended release(part/cryst) 20 meq PO BIDCM #0 tabs 07/18/25 potassium, sodium phosphates 280 mg-160 mg-250 mg oral powder packet 1 packet PO BID #0 ea 07/18/25 sennosides 8.6 mg-docusate sodium 50 mg tablet (Stimulant Laxative Plus) 2 tab PO BID PRN PRN Constipation #0 tabs 07/18/25 spironolactone 25 mg tablet 12.5 mg (1/2 x 25 mg) PO DAILY #0 tabs 07/18/25 thiamine HCl (vitamin B1) 100 mg tablet 100 mg PO DAILYCM #0 tabs 07/18/25 Hospital Course Summary of Care Provided Minutes Spent on Discharge: 32 Medical Records Data Medical Nutrition Assessment Dietitian: Malnutrition Criteria Met Start: 07/16/25 14:48 Freq: Status: Active Protocol: Document 07/16/25 14:48 RMA (Rec: 07/16/25 14:48 RMA [id number]) Nutrition Malnutrition Evidence of Yes Malnutrition Exists Malnutrition (severe Chronic ): Evidenced By Suboptimal Energy Intake (Severe),Weight Loss (Severe) Clinical Problem Chronic Disease or Condition Related Malnutrition Etiology severe protein-calorie malnutrition in the context of chronic disease related to alcohol abuse and inadequate oral intake Signs/Symptoms as evidenced by ~7-10% unintentional weight loss x past 3-6 months; BMI 21.1; fluid weight/ascites likely masking further weight loss; PO meeting less than 50% estimated nutrition needs x 1-2 months; currently poor PO at meals <50% consumed Status Active Problem Recommendation Dietitian Continue regular diet for now; restrict sodium as Recommendations/ needed once PO improves. Changes Will add magic cup with lunch and dinner. Will continue 120mL ensure plus HP 4 times per day with medpass as tolerated. Will trend weights and adjust ONS as needed. Weight / BMI Weight Weight: 56.245 kg Body Mass Index (BMI) 23.4 ABG / Lab / Microbiology Data 07/18/25 06:45 07/18/25 06:45 Laboratory: Laboratory Results - last 24 hr 07/18/25 06:45: WBC 8.4, RBC 3.92 L, Hgb 13.2, Hct 39.2, MCV 100.0 H, MCH 33.7 H , MCHC 33.7, RDW Std Deviation 50.5 H, RDW Coeff of Huyen 13.7, Plt Count TNP, MPV 11.2, Immature Gran % (Auto) 0.400, Neut % (Auto) 69.8, Lymph % (Auto) 21.0, Terrell % (Auto) 7.6, Eos % (Auto) 0.6, Baso % (Auto) 0.6, Absolute Neuts (auto) 5.9, Absolute Lymphs (auto) 1.77, Nucleated RBC % 0, Platelet Estimate ADEQUATE, Plt Morphology Comment CLUMPED, Sodium 138, Potassium 3.8, Chloride 108, Carbon Dioxide 20.7 L, Anion Gap 10, BUN 9, Creatinine 0.50 L, Estim Creat Clear Calc 45.85 L, Est GFR (MDRD) Non-Af 98, BUN/Creatinine Ratio 17.8, Glucose 87, C alcium 7.2 L Microbiology: Microbiology 07/14/25 17:45 Urine Catheter - Catheter Urine Culture - Final Klebsiella pneumoniae sp pneum 07/14/25 11:41 Blood Culture (Wb) - Anticubital Left Blood Culture - Preliminary No growth in 48 hours. 07/14/25 09:10 Mucosa - Nose SARS-CoV-2, Influenza & RSV (PCR) - Final D/C Instructions DC O2, CPAP, BIPAP Needs Home O2 Discharge instructions: Yes Type of respiratory needs?: Oxygen Oxygen frequency: Continuous Continuous oxygen liters per minute: 2 DC home with Oxygen: Yes Home O2 MD Review: I have reviewed the oxygen testing, and the patient qualifies for home oxygen equipment and portability. The patient is mobile in the home and the community. Patient's Goals Of Care - F/U Goals Reviewed Goals of care reviewed with patient: Yes - No change Meaningful Use Info Meaningful Use Meaningful Use Diagnoses (Choose all that apply): None applicable Discharge Plan Admission Admit Date/Time: 07/14/25 08:26 Attending Provider: Turner Bingham Primary Care Provider: Care Physician,No Primary Discharge Orders/Prescriptions Prescriptions: New furosemide 40 mg Tablet 20 mg PO DAILY Qty: 0 0RF acetaminophen 325 mg Tablet 650 mg PO Q6H PRN PRN (Reason: Pain 1-10 Or Fever>100.7) Qty: 0 0RF loperamide 2 mg Capsule 2 mg PO Q4H PRN PRN (Reason: Diarrhea/Loose Stools) Qty: 0 0RF midodrine 5 mg Tablet 10 mg PO TIDCM Qty: 0 0RF potassium chloride 20 mEq Tablet,Er Particles/Crystals 20 meq PO BIDCM Qty: 0 0RF folic acid 1 mg Tablet 1 mg PO DAILY@0800 Qty: 0 0RF dicyclomine 10 mg Capsule 20 mg PO Q6H PRN PRN (Reason: abdominal discomfort) Qty: 0 0RF alum-mag hydroxide-simeth [Mag-Al Plus Extra Strength] 400-400-40 mg/5 mL Suspension 30 ml PO Q6H PRN PRN (Reason: Gastric Burning) Qty: 0 0RF hydroxyzine pamoate 25 mg Capsule 50 mg PO Q4H PRN PRN (Reason: mild anxiety) Qty: 0 0RF potassium, sodium phosphates 280-160-250 mg Powder In Packet 1 packet PO BID Qty: 0 0RF Ensure Plus High Protein 0.08 gram-1.5 kcal/mL Liquid 120 ml PO 4X/DAY Qty: 0 0RF nicotine 14 mg/24 hr Patch 24 Hour 14 mg transdermal DAILY Qty: 0 0RF sennosides-docusate sodium [Stimulant Laxative Plus] 8.6-50 mg Tablet 2 tab PO BID PRN PRN (Reason: Constipation) Qty: 0 0RF thiamine HCl (vitamin B1) 100 mg Tablet 100 mg PO DAILYCM Qty: 0 0RF spironolactone 25 mg Tablet 12.5 mg PO DAILY Qty: 0 0RF Referrals / Follow Up: Victorino Romo MD [Med Staff - Active Staff, Internal Medicine] - Within 1 Month Problems: Cirrhosis of liver with ascites Care Physician,No Primary [Primary Care Provider, Medical] Disposition Disposition (needs filled in before D/C Order can be placed): [facility] Charges/Coding Visit Charges Inpatient E&M: 15536 Disch Hosp >30min
--- NOTE | 2025-07-18 13:51 | NURSING ---
Report given to SCARLETT Flores in TCU.
== END 2025-07-18 14:19 | disposition skilled nursing facility (03) | DRG 689 ==
LOC: ED 08:42 → ICU 11:23 → MS3 07-15 15:48
PROVIDERS: Admitting Provider Internal Medicine; Emergency Provider Emergency Medicine; Visit Provider Internal Medicine
DX: N30.00 Acute cystitis without hematuria (principal); G93.41 Metabolic encephalopathy; G92.8 Other toxic encephalopathy; E43 Unspecified severe protein-calorie malnutrition; R18.8 Other ascites; F10.239 Alcohol dependence with withdrawal, unspecified; I47.10 Supraventricular tachycardia, unspecified; K72.90 Hepatic failure, unspecified without coma; K74.60 Unspecified cirrhosis of liver; L89.159 Pressure ulcer of sacral region, unspecified stage; G31.2 Degeneration of nervous system due to alcohol; E87.6 Hypokalemia; E83.39 Other disorders of phosphorus metabolism; E86.0 Dehydration; F17.210 Nicotine dependence, cigarettes, uncomplicated; I95.9 Hypotension, unspecified; B96.1 Klebsiella pneumoniae [K. pneumoniae] as the cause of diseases classified elsewhere; T42.3X5A Adverse effect of barbiturates, initial encounter; F10.20 Alcohol dependence, uncomplicated; R09.02 Hypoxemia; R29.6 Repeated falls; E07.81 Sick-euthyroid syndrome; Z68.21 Body mass index [BMI] 21.0-21.9, adult
CPT/HCPCS: 36415; 49083; 70450; 71045; 71275; 74177; 80048; 80076; 80143; 80179; 80307; 81001; 82042; 82077; 82140; 82945; 83615; 83735; 83880; 84100; 84132; 84145; 84157; 84443; 85025; 85379; 87040; 87077; 87086; 87088; 87186; 87631; 88108; 88305; 88313; 89050; 93005; 94668; 97116; 97163; 97167; 97530; 97535; 97802; 97803; 99285; 99406; Q9967; A4216